=== PATIENT | male | born 1950 | race Caucasian/White ===

== ENCOUNTER 2019-03-24 11:23 | Inpatient (IN) | payer MEDICARE, OTHER ==
[2019-03-24] MEDS ORDERED: Acetaminophen 500 MG Tab PO ONE (12:00)
[2019-03-24] MEDS ORDERED: Gabapentin 400 MG Cap PO ONE (12:00)
[2019-03-24] MEDS ORDERED: Dextrose 5%-Lactated Ringers 1,000 ML IV SCH ×2 (13:00→17:30)
[2019-03-24] MEDS ORDERED: fentaNYL 250 MCG/5 ML SDV ONE (13:46)
[2019-03-24] MEDS ORDERED: Rocuronium 50 MG/5 ML Vial ONE (13:46)
[2019-03-24] MEDS ORDERED: Glycopyrrolate 0.2 MG/ML 5 ML MDV ONE (13:46)
[2019-03-24] MEDS ORDERED: Succinylcholine 200 MG/10 ML MDV ONE (13:46)
[2019-03-24] MEDS ORDERED: Propofol 200 MG/20 ML SDV ONE (13:46)
[2019-03-24] MEDS ORDERED: Ondansetron 4 MG/2 ML SDV ONE (13:46)
[2019-03-24] MEDS ORDERED: Dexamethasone 4 MG/ML SDV ONE (13:46)
[2019-03-24] MEDS ORDERED: Neostigmine Methylsulfate 1 MG/ML 5 ML Syringe ONE (13:46)
[2019-03-24] MEDS ORDERED: Albuterol/Ipratropium 3.0-0.5 MG/3 ML Neb Soln NEB ONE (14:00)
[2019-03-24] MEDS ORDERED: cefOXitin 2 GM in Sodium Chloride 0.9% 50 ML IV ONE (14:00)
[2019-03-24] MEDS ORDERED: Naloxone 0.4 MG/ML SDV IVPUSH PRN (14:00)
[2019-03-24] MEDS ORDERED: Meropenem 500 MG SDV ONE (14:32)
[2019-03-24] MEDS ORDERED: fentaNYL 100 MCG/2 ML SDV ONE (14:44)
[2019-03-24] MEDS ORDERED: Sodium Chloride 0.9% 10 ML ONE (14:44)
[2019-03-24] MEDS ORDERED: Lactated Ringers 1,000 ML ONE (15:21)
[2019-03-24] MEDS ORDERED: Ondansetron 4 MG/2 ML SDV IVPUSH PRN (17:28)
[2019-03-24] MEDS ORDERED: Albuterol/Ipratropium 3.0-0.5 MG/3 ML Neb Soln INH PRN (17:28)
[2019-03-24] MEDS ORDERED: hydrOXYzine HCl 100 MG/2 ML SDV IM PRN (17:28)
[2019-03-24] MEDS ORDERED: Nitroglycerin 0.4 MG Tab.SL SL PRN (17:30)
[2019-03-24] MEDS ORDERED: diphenhydrAMINE 50 MG/ML SDV IVPUSH PRN (17:40)
[2019-03-24] MEDS ORDERED: Naloxone 0.4 MG/ML SDV IV PRN (17:40)
[2019-03-24] MEDS: fentaNYL 2,500 MCG in Sodium Chloride 0.9% 200 ML EPIDUR SCH (18:33)
[2019-03-24] MEDS: cefOXitin 2 GM in Sodium Chloride 0.9% 50 ML IV SCH (20:35)
[2019-03-24] MEDS: Albuterol/Ipratropium 3.0-0.5 MG/3 ML Neb Soln INH SCH (21:08)
[2019-03-24] MEDS: Pantoprazole 40 MG Vial IVPUSH SCH (21:13)
[2019-03-24] MEDS: Tamsulosin 0.4 MG Cap.ER PO SCH (21:15)
[2019-03-24] MEDS: Gabapentin 400 MG Cap PO SCH (21:15)
[2019-03-25] MEDS: cefOXitin 2 GM in Sodium Chloride 0.9% 50 ML IV SCH ×2 (03:19→08:28)
[2019-03-25] MEDS: Gabapentin 400 MG Cap PO SCH ×4 (05:58→21:46)
[2019-03-25] MEDS: Albuterol/Ipratropium 3.0-0.5 MG/3 ML Neb Soln INH SCH ×4 (07:44→20:53)
--- NOTE | 2019-03-25 08:02 | CRLCR ---
HISTORY: Pleural effusion follow-up. TECHNIQUE: Two views of the chest. COMPARISON: 03/03/2019. FINDINGS: Decrease in size of small left pleural effusion with a small amount of residual pleural fluid present. There remains residual atelectasis or infiltrate at the right lung base. There is a curvilinear opacity at the right lung base with gas on either side. Considerations include dilated abdominal bowel loop, free air under the hemidiaphragm or curvilinear atelectasis. Has the patient undergone recent abdominal surgery or does the patient have abdominal symptoms? If so, consider abdominal radiographs or CT for further characterization. There is no pneumothorax. Patient is status post sternotomy. Cardiac size is within normal limits. Prior cervical fusion. IMPRESSION: 1. Decreased left pleural effusion with a small amount of residual left pleural fluid and left basilar atelectasis or infiltrate. 2. Curvilinear opacity at the right lower chest position with considerations including dilated gas-filled abdominal viscus, free air under the hemidiaphragm or possibly unusual appearance of curvilinear atelectasis. Does the patient have abdominal symptoms or has the patient undergone recent abdominal surgery? Abdominal radiographs or CT could be considered for further evaluation if clinically indicated. Dictated by Pan Pan MD @ 03/25/2019 7:59:59 AM Dictated by: Pan Pan MD @ 03/25/2019 08:00:36 (Electronically Signed)
[2019-03-25] MEDS: atorvaSTATin 20 MG Tab PO SCH (08:31)
[2019-03-25] MEDS: Aspirin 81 MG Tab.EC PO SCH (08:31)
[2019-03-25] MEDS: Lisinopril 5 MG Tab PO SCH (08:32)
[2019-03-25] MEDS: Bisacodyl 5 MG Tab PO SCH ×2 (09:27→20:48)
[2019-03-25] MEDS: traMADol 50 MG Tab PO SCH ×3 (09:27→21:47)
[2019-03-25] MEDS: Acetaminophen 500 MG Tab PO SCH ×3 (09:27→21:46)
--- NOTE | 2019-03-25 11:19 | PN ---
DATE OF SERVICE: 03/25/2019 SUBJECTIVE: Logan is postoperative day #1. He states his pain is controlled. He has remained n.p.o. Vital signs have been stable. Oral intake was 390, which includes ice chips, Anna output was 1500, JESUS drain put out 390 mL of a light pink drainage. REVIEW OF SYSTEMS: Remainder of review of systems negative for any pertinent positives and negatives. OBJECTIVE: GENERAL: Logan Campbell is a pleasant 68-year-old male. Alert and orientated. VITAL SIGNS: TPR 95.8, 65, 15. Blood pressure 105/60. HEENT: Negative. NECK: Supple. HEART: Regular rate and rhythm. LUNGS: Clear. ABDOMEN: Dressings dry and intact. Abdominal binder is on. EXTREMITIES: Without peripheral edema. JESUS drain has put out a light pink drainage. ASSESSMENT: Exploratory laparotomy with: 1. Right colectomy. 2. Excision of peritoneal nodules on proximal jejunojejunostomy (3 mm) and placement of Interceed mesh for thickened appendix with history of metastatic adenocarcinoma, left pleural fluid with immunostain suggestive of GI tract primary site. Date of surgery 03/24/2019. PLAN: 1. Schedule, have consent signed for delayed primary closure, Thursday03/26/2019. IV and local sedation with TAP block, Diego Stahl MD. 2. NPO after midnight. 3. Decrease IV to 80 mL per hour. 4. Dulcolax 10 mg p.o. b.i.d. 5. Senna Plus 2 tablets by mouth b.i.d. 6. Ibuprofen 600 mg q.6 hours scheduled by mouth orally. 7. Tylenol 1000 mg q.6 hours scheduled p.o. 8. Tramadol 50 mg q.6 hours scheduled. 9. Regular diet. 10.Ensure protein drinks 3 times a day. 11.Chest x-ray PA and lateral now to evaluate if there is any pleural effusion. 12.We will evaluate p.r.n. or in a.m. Melinda Sears PA-C /[id number]
[2019-03-25] MEDS: Ibuprofen 600 MG Tab PO SCH ×2 (12:47→19:19)
--- NOTE | 2019-03-25 13:16 | PCM.CONS ---
H&P History of Present Illness - General Date of Service: 03/25/19 Admit Problem/Dx: Admission Diagnosis/Problem Admission Diagnosis/Problem Colectomy Source of Information: Patient, Provider History Limitations: Reports: No Limitations - History of Present Illness Initial Comments - Free Text/Narative: Logan was admitted yesterday for surgical intervention with a thickened appendix and metastatic adenocarcinoma. He had an uncomplicated right colectomy. I was asked to see him today by Dr. 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 He recovered without any major adverse events. He has had surgeries since then without any difficulties. He has never been reexposed to heparin. He feels well at this time. No fevers. Abdominal pain is rated at 0 out of 10. He is a little bit sleepy and falls asleep during our conversation several times. He does not feel short of breath. Abdomen Pain Score (Numeric/FACES): 0 - Related Data Allergies/Adverse Reactions: Allergies Allergy/AdvReac Type Severity Reaction Status Date / Time heparin Allergy Tachycardia Verified 03/24/19 11:49 Home Medications: Home Meds Aspirin 81 mg PO DAILY 05/26/18 [History] Gabapentin [Neurontin] 300 mg PO QID 05/26/18 [History] Lisinopril 5 mg PO DAILY 05/26/18 [History] atorvaSTATin [Lipitor] 80 mg PO BEDTIME 05/26/18 [History] Albuterol Sulfate [Proair Hfa] 1 - 2 puff IH Q4H PRN 03/03/19 [History] Nitroglycerin [Nitrolingual] 2 spray TL ASDIRECTED PRN 03/03/19 [History] Past Medical History HEENT History: Reports: Hard of Hearing, Impaired Vision Cardiovascular History: Reports: Arrhythmia, High Cholesterol, Hypertension, Stents Respiratory History: Reports: COPD Genitourinary History: Reports: BPH Musculoskeletal History: Reports: Fracture, Osteoarthritis Neurological History: Reports: Neuropathy, Peripheral Oncologic (Cancer) History: Reports: Other (See Below) Other Oncologic History: appendix - Infectious Disease History Infectious Disease History: Reports: Chicken Pox, Measles - Past Surgical History HEENT Surgical History: Reports: None Cardiovascular Surgical History: Reports: Coronary Artery Bypass, Coronary Artery Stent Respiratory Surgical History: Reports: None Male Surgical History: Reports: None Neurological Surgical History: Reports: C-Spine Musculoskeletal Surgical History: Reports: Other (See Below) Other Musculoskeletal Surgeries/Procedures:: spinal surgery Social & Family History - Family History Respiratory: Denies: PE - Tobacco Use Smoking Status *Q: Current Every Day Smoker Years of Tobacco use: 50 Packs/Tins Daily: 1 Second Hand Smoke Exposure: No - Caffeine Use Caffeine Use: Reports: Coffee - Alcohol Use Days Per Week of Alcohol Use: 0 - Recreational Drug Use Recreational Drug Use: No H&P Review of Systems - Review of Systems: Review Of Systems: See Below Free Text/Narrative: A complete 12 point review of systems was obtained. Pertinent positives and negatives are noted in the history of present illness. All other systems were reviewed and were negative except as noted. Exam - Exam Exam: See Below - Vital Signs Vital Signs: Last Vital Signs Temp 35.1 C L 03/25/19 11:10 Pulse 75 03/25/19 11:10 Resp 15 03/25/19 11:10 BP 89/53 L 03/25/19 11:10 Pulse Ox 100 03/25/19 12:45 Weight: 73.482 kg - Exam Quality Assessment: Supplemental Oxygen General: Alert, Oriented, Cooperative. No: Mild Distress HEENT: No: Mucosa Moist & Newton[place] (dry), Scleral Icterus Neck: Supple, Trachea Midline Lungs: Normal Respiratory Effort. No: Wheezing Cardiovascular: Regular Rate, Regular Rhythm GI/Abdominal Exam: Soft, No Distention Extremities: No Pedal Edema. No: Increased Warmth Skin: Warm, Dry Neuro Extensive - Mental Status: Alert, Nl Response to Commands Neuro Extensive - Motor, Sensory, Reflexes: No: Abnormal Motor, Tremor Psychiatric: Alert, Normal Affect - Patient Data Lab Results Last 24 hrs: Laboratory Results - last 24 hr 03/24/19 Range/Units 12:00 Carcinoembryonic Ag 160.9 H (0.0-4.7) ng/mL Result Diagrams: 03/24/19 11:44 03/24/19 11:44 Imaging Impressions Last 24 hrs: CXR - images personally reviewed - small left pleural effusion, lungs otherwise clear with no mass Consult PN Assessment/Plan POD#: 1 Procedures: Procedures ASPIRATE PLEURA W/ IMAGING (03/04/19) ASSAY OF AMYLASE (03/04/19) ASSAY OF CK (CPK) (03/03/19) ASSAY PH BODY FLUID NOS (03/04/19) BODY FLUID CELL COUNT (03/04/19) C-REACTIVE PROTEIN (05/26/18) COMPLETE CBC W/AUTO DIFF WBC (05/26/18) COMPREHEN METABOLIC PANEL (05/26/18) CT ABD & PELV W/CONTRAST (03/21/19) CT ABD & PELVIS W/O CONTRAST (05/26/18) CT THORAX W/O DYE (03/04/19) CULTURE OTHR SPECIMN AEROBIC (03/04/19) EMERGENCY DEPT VISIT (05/26/18) GLUCOSE OTHER FLUID (03/04/19) HYDRATE IV INFUSION ADD-ON (05/26/18) HYDRATION IV INFUSION INIT (05/26/18) LACTATE (LD) (LDH) ENZYME (03/04/19) MYCOBACTERIA CULTURE (03/04/19) ROUTINE VENIPUNCTURE (05/26/18) SMEAR FLUORESCENT/ACID STAI (03/04/19) SMEAR GRAM STAIN (03/04/19) SPECIMEN INFECT AGNT CONCNTJ (03/04/19) URINALYSIS AUTO W/SCOPE (05/26/18) US URINE CAPACITY MEASURE (05/26/18) Problem List Initiated/Reviewed/Updated: Yes Plan: ASSESSMENT AND RECOMMENDATIONS - 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 Clinically stable at this time with no evidence for bleeding. Any of the DOAC's would be acceptable at DVT prophylaxis dosing versus fondaparinux ( Arixtra). With his kidney disease and CrCl <50 the safest option probably would be apixaban (Eliquis). -Recommend DVT prophylaxis with apixaban (Eliquis) 2.5 mg BID when safe in the postoperative period Thickened appendix with metastatic adenocarcinoma - day one postop status post right colectomy and nodule removal. Doing well postoperatively. Pain well- controlled. -Postoperative cares per the surgical team London Roa M.D. Requesting Provider: Dr Stahl Date Consult Requested: 03/25/19 Reason for Consult: Hx of HIT Patient History Reviewed: Yes Admission H&P Reviewed: Yes Notified Requestor: No Time Spent (in minutes): 40
[2019-03-25] MEDS: fentaNYL 2,500 MCG in Sodium Chloride 0.9% 200 ML EPIDUR SCH (14:49)
[2019-03-25] MEDS: Dextrose 5%-Lactated Ringers 1,000 ML IV SCH (16:29)
[2019-03-25] MEDS: Tamsulosin 0.4 MG Cap.ER PO SCH (20:48)
[2019-03-25] MEDS: Pantoprazole 40 MG Vial IVPUSH SCH (20:48)
[2019-03-26] MEDS: Ibuprofen 600 MG Tab PO SCH ×4 (01:30→19:13)
[2019-03-26] MEDS: Acetaminophen 500 MG Tab PO SCH ×4 (03:54→21:26)
[2019-03-26] MEDS: traMADol 50 MG Tab PO SCH ×4 (03:54→21:26)
[2019-03-26] MEDS: Dextrose 5%-Lactated Ringers 1,000 ML IV SCH ×2 (04:00→12:47)
[2019-03-26] MEDS ORDERED: Lactated Ringers 500 ML IV SCH (05:15)
[2019-03-26] MEDS: Gabapentin 400 MG Cap PO SCH ×4 (05:58→21:26)
[2019-03-26] MEDS ORDERED: Propofol 200 MG/20 ML SDV ONE ×2 (07:23→07:58)
[2019-03-26] MEDS: Bupivacaine 0.5% 50 ML MDV ONE ×2 (07:25→08:07)
[2019-03-26] MEDS: Lidocaine 1% with EPINEPHrine 1:100,000 50 ML MDV ONE ×2 (07:25→08:07)
[2019-03-26] MEDS: Meropenem 500 MG SDV ONE ×2 (07:26→08:13)
[2019-03-26] MEDS ORDERED: Ropivacaine 36 ML, dexAMETHasone 8 MG, EPINEPHrine 0.4 MG, Sodium Chloride 0.9% 41.6 ML NERVRT SCH ×4 (07:45)
[2019-03-26] MEDS: Albuterol/Ipratropium 3.0-0.5 MG/3 ML Neb Soln INH SCH ×4 (07:51→21:31)
[2019-03-26] MEDS: Lisinopril 5 MG Tab PO SCH (09:30)
[2019-03-26] MEDS ORDERED: HYDROmorphone 1 MG/ML Syringe IV PRN (09:44)
[2019-03-26] MEDS ORDERED: Furosemide 20 MG/2 ML VIAL IV ONE (10:30)
[2019-03-26] MEDS: Bisacodyl 5 MG Tab PO SCH ×2 (10:46→21:26)
[2019-03-26] MEDS: atorvaSTATin 20 MG Tab PO SCH (10:46)
[2019-03-26] MEDS: Aspirin 81 MG Tab.EC PO SCH (10:47)
[2019-03-26] MEDS ORDERED: Lactated Ringers 500 ML IV ONE (18:30)
[2019-03-26] MEDS: Pantoprazole 40 MG Vial IVPUSH SCH (21:26)
[2019-03-26] MEDS: Tamsulosin 0.4 MG Cap.ER PO SCH (21:26)
[2019-03-27] MEDS: Ibuprofen 600 MG Tab PO SCH ×4 (01:15→19:10)
[2019-03-27] MEDS: Dextrose 5%-Lactated Ringers 1,000 ML IV SCH ×2 (02:02→19:08)
[2019-03-27] MEDS: traMADol 50 MG Tab PO SCH ×3 (03:19→15:21)
[2019-03-27] MEDS: Acetaminophen 500 MG Tab PO SCH ×3 (03:19→15:20)
[2019-03-27] MEDS: Gabapentin 400 MG Cap PO SCH ×3 (05:50→15:20)
[2019-03-27] MEDS: Albuterol/Ipratropium 3.0-0.5 MG/3 ML Neb Soln INH SCH ×4 (07:07→21:43)
[2019-03-27] MEDS ORDERED: Sodium Chloride 0.9% 10 ML Syringe IV PRN (07:46)
[2019-03-27] MEDS ORDERED: Magnesium Hydroxide 400 MG/5 ML Susp 30 ML Cup PO PRN (07:46)
[2019-03-27] MEDS: Apixaban 2.5 MG Tab PO SCH ×2 (08:16→21:44)
[2019-03-27] MEDS: atorvaSTATin 20 MG Tab PO SCH (08:16)
[2019-03-27] MEDS: Bisacodyl 5 MG Tab PO SCH ×2 (08:16→21:25)
[2019-03-27] MEDS: Magnesium Sulfate/Water 2 GM in Premix Bag 1 BAG IV SCH ×3 (08:16→21:43)
[2019-03-27] MEDS: Aspirin 81 MG Tab.EC PO SCH (08:18)
[2019-03-27] MEDS: Lisinopril 5 MG Tab PO SCH (08:19)
--- NOTE | 2019-03-27 09:07 | PN ---
DATE OF SERVICE: 03/26/2019 The patient has been afebrile with stable vital signs. Urine output is little low overnight. We did give him some additional bolus. He is vaguely more short of breath than usual and he does have underlying chronic obstructive pulmonary disease and some history of cor pulmonale. Given this, I think we will give him a low-dose Lasix at this point otherwise. He underwent a delayed primary closure at this point and we will begin diet once again and continue the Tylenol, tramadol, and ibuprofen, and Dilaudid IV if necessary. Otherwise, Anna catheter will be coming out and we will maximize activity and work with pulmonary toilet and continue to work on bowel stimulation. Diego Stahl MD /[id number]
--- NOTE | 2019-03-27 12:13 | PN ---
DATE OF SERVICE: 03/27/2019 The patient has been afebrile with stable vital signs. No bowel movement as of yet, may be passing a little bit of gas. Otherwise, oral intake was 2200 mL lack of IV and continue with bowel stimulation today and JESUS drain will come out. He will probably be able to be discharged home tomorrow. Diego Stahl MD /[id number]
--- NOTE | 2019-03-27 13:04 | OR ---
DATE OF PROCEDURE: 03/26/2019 PREOPERATIVE DIAGNOSIS: Open abdominal incision. POSTOPERATIVE DIAGNOSIS: Open abdominal incision. PROCEDURE: Delayed primary closure of open abdominal incision. ANESTHESIA: IV sedation plus local. INDICATION FOR PROCEDURE: The patient is 48 hours out status post an open laparotomy bowel with a right colectomy. I think he was felt to be high risk for wound infection if primary closure was undertaken. Therefore, he is to undergo a delayed primary closure at this time. Potential risks of the procedure including bleeding and infection were reviewed with the patient, and he wishes to proceed. DETAILS OF PROCEDURE: The patient was taken to the operating room and placed in a supine position, sitting somewhat upright to minimize aspiration risk. The abdomen was then prepped and draped after the dressing had been taken down and the wound being judged to be clean. The incision was then anesthetized with 1% lidocaine mixed with Marcaine, then irrigated with meropenem-containing saline solution. The incision was extended from roughly 3 fingerbreadths above the umbilicus to just above the pubis. It was then closed with 2 layers of 3-0 and 4-0 Vicryl stitch deep and arjun for the skin. Bilateral transversus abdominis plane blocks were then placed, and eventually the patient was taken to the recovery room in satisfactory condition. Diego Stahl MD /[id number]
[2019-03-27] MEDS ORDERED: Bisacodyl 10 MG Supp RECTAL PRN (13:45)
[2019-03-27] MEDS ORDERED: Bisacodyl 10 MG Supp RECTAL ONE (14:00)
[2019-03-27] MEDS ORDERED: Pantoprazole 40 MG Tab.CR PO SCH (21:00)
[2019-03-27] MEDS ORDERED: Acetaminophen 1,000 MG in Premix Bag 1 BAG IV PRN (21:22)
[2019-03-27] MEDS: Tamsulosin 0.4 MG Cap.ER PO SCH (21:25)
[2019-03-27] MEDS: Metoclopramide 10 MG/2 ML SDV IV SCH (21:43)
[2019-03-27] MEDS ORDERED: Pantoprazole 40 MG Vial IVPUSH SCH (22:00)
[2019-03-28] MEDS: Metoclopramide 10 MG/2 ML SDV IV SCH ×4 (04:17→23:35)
[2019-03-28] MEDS: Dextrose 5%-Lactated Ringers 1,000 ML IV SCH (04:17)
[2019-03-28] MEDS: Magnesium Sulfate/Water 2 GM in Premix Bag 1 BAG IV SCH ×4 (04:17→20:29)
--- NOTE | 2019-03-28 05:13 | CRLCR ---
INDICATION: Colon resection. Ileus. TECHNIQUE: Upright and supine views of the abdomen IMPRESSION : Air-fluid levels with possible ileus pattern however suggest follow-up. Upright exam shows no free air under the hemidiaphragms. FINDINGS: Multiple air-fluid levels within the GI tract. Some possible radiodense material or contrast in the left colon. Left upper quadrant. NG tube placement to the proximal stomach. No definite free air under the diaphragms. Midline surgical arjun are present. Paucity of distal colon gas is present. In a postoperative patient ileus could be considered but follow up is suggested. Dictated by Alli Pichardo MD @ Mar 28 2019 5:12AM Signed by Dr. Alli Pichardo @ Mar 28 2019 5:12AM
[2019-03-28] MEDS: Albuterol/Ipratropium 3.0-0.5 MG/3 ML Neb Soln INH SCH ×4 (07:23→20:29)
[2019-03-28] MEDS ORDERED: Furosemide 20 MG/2 ML VIAL IVPUSH ONE (08:00)
[2019-03-28] MEDS: Apixaban 2.5 MG Tab PO SCH ×2 (08:43→20:29)
[2019-03-28] MEDS: Lisinopril 5 MG Tab PO SCH (08:43)
[2019-03-28] MEDS: Bisacodyl 10 MG Supp RECTAL SCH ×3 (08:44→23:38)
--- NOTE | 2019-03-28 09:10 | OR ---
DATE OF PROCEDURE: 03/24/2019 SURGEON: Diego Stahl MD PREOPERATIVE DIAGNOSIS: Thickened appendix with history of metastatic adenocarcinoma in left pleural fluid with immunostains suggestive of gastrointestinal tract primary site. POSTOPERATIVE DIAGNOSES: 1. Thickened appendix with history of metastatic adenocarcinoma in left pleural fluid with immunostains suggestive of gastrointestinal tract primary site. 2. Peritoneal nodule overlying the proximal jejunum. OPERATIVE PROCEDURES: Exploratory laparotomy with: 1. Right colectomy (03535). 2. Excision of peritoneal nodule on proximal jejunal peritoneal surface (79009). 3. Placement of Interceed mesh to displace pelvic and abdominal wall from underlying viscera to limit recurrent adhesion formation (79815). ANESTHESIA: General plus epidural. PARTS DELIVERY DRIVER: Melinda Sears PA-C. INDICATIONS FOR PROCEDURE: This is a 68-year-old recently presenting with some shortness of breath and was found to have a large left pleural effusion. A thoracentesis was undertaken, and it showed adenocarcinoma within the pleural fluid. The immunostains, however, were not definitive for a lung primary and were, however, somewhat suggestive of possible gastrointestinal primary site. CT scan was obtained of the abdomen and the only abnormality noted was there was a thickened appendix. This would be suggestive of either a possible appendiceal carcinoma or a cecal carcinoma at or near the appendiceal orifice. This also raised the spectrum of possible perforation of this, which would result in peritoneal carcinomatosis. Again, given this, I was contacted by the patient's Medical Oncology provider, Ambreen Osborne PA-C, who recommended a rapid surgical intervention. We opted to proceed with a right colectomy so that, in the event that this was a malignancy, adequate surgical procedure as well as staging would have been accomplished at a single operative setting. The patient and family are aware that there is a possibility this may end up being a non- malignant finding in the appendix. Otherwise, potential risks including bleeding, infection, leaks from various GI tract closures, possible additional local tumor recurrence, as well as possibility of cardiopulmonary, septic, or hemorrhagic complications leading to were discussed, and the patient wishes to proceed. DETAILS OF PROCEDURE: The patient was taken to the operating room and placed in a supine position. After an epidural catheter had been placed, general endotracheal anesthesia was induced, a Anna catheter was inserted, and the abdomen was prepped and draped. Prior to incision, the epidural catheter infusion was initiated. A midline incision which extended from roughly 3 fingerbreadths above the umbilicus to just above the pubis was made and carried down through the full thickness of the abdominal wall. Upon entering the peritoneal cavity, initially saline was injected for peritoneal washings. A thorough exploration was then undertaken. The patient was noted to have a thickened appendix. This definitely did not appear to be a normal appendix. There was no hard mass associated with it, but more of a thickening in the proximal half of the appendix. There was quite a bit in the way of nodes in the ileocolic chain. None of these were significantly large, but they were somewhat firm, but they certainly could be inflammatory in nature other than malignant. Otherwise, a thorough examination was undertaken. The area along the splenic area and tail of pancreas were then inspected. The entire pancreas was then palpated. There were no abnormalities noted. The liver was visually identified and by palpation, examined, and no abnormalities were noted there. Underlying the small bowel, there was a 3 mm whitish nodule located on the peritoneum of the proximal jejunum. This was excised and sent for pathologic exam. This, despite the finding, probably will end up being benign. Otherwise, the remainder of the small bowel was unremarkable. The rectum was unremarkable, as was the urinary bladder. The sigmoid colon had quite extensive diverticulosis, but careful palpation revealed no obvious masses, and the remainder of the more proximal colon was otherwise unremarkable. There did not appear to be any periaortic or iliac lymphadenopathy. No pleural lymphadenopathy. Gallbladder was otherwise unremarkable as well. Certainly, there was no peritoneal carcinomatosis per se, and no significant primary peritoneal fluid prior to the initiation of the washings. At this point, the decision was made to proceed as previously planned with the right colectomy. At this point, the peritoneal reflection of the distal small bowel, cecum, and then ascending colon were divided. This allowed mobilization of the distal small bowel, cecum, and the ascending colon medially. This was elevated above the right ureter and away from the duodenum. The distal small bowel was then divided with a ALEXA stapler, roughly 10 cm proximal to the ileocecal valve, which was an area which was quite mobile, allowing an easy subsequent anastomosis. The transverse colon was then divided at a point just to the right of the middle colic vessel with a GI stapler as well, and the intervening mesentery was then divided with ALEXA mesenteric staple. The ileocolic vessels were divided more or less at their leaving the origin of the superior mesenteric artery to provide a satisfactory lymph node resection. Upon removal of the specimen, off the field, it was subsequently opened. The mucosa of the appendix was noted to be somewhat thickened, but not obviously malignant. Final pathology report is obviously pending. At this point, GI tract continuity was re-established with a [id number] ileocolic anastomosis. This was done with 2 internal firings of an Endo-ALEXA 60 mm stapler. Common opening was closed transversely with ALEXA arjun as well, the angles anastomosed, and the mesenteric defect was then approximated with some 3-0 Vicryl stitch. Fibrin sealant was then also used to reinforce the anastomosis, and some omentum was placed over the anastomosis as well. At this point, no further problems were noted. The abdomen was irrigated with meropenem-containing saline solution. A single John-Cage drain was then placed through a stab wound in the right flank, taken down across the anastomosis and along the right pericolic gutter area and from there into the pelvis. In the event the patient would need some additional abdominal surgeries, the pelvic and abdominal alvarado were then from the underlying viscera with Interceed mesh so as to limit adhesion formation. Once this was raised, the posterior peritoneum from the linea semilunaris downwards was closed with a #2 Vicryl stitch as was the anterior fascia. Skin and subcutaneous tissue were felt to be at high risk for wound infection if the primary closure was undertaken, so the wound packed open for a delayed primary closure in 48 hours. The patient was taken to the recovery room in satisfactory condition. Physician embalmer assistant, Melinda Sears, played an essential role in assisting in this case, helping to position the patient, retract structures as needed, as well as suturing and cutting sutures when indicated. Her presence improved patient safety and decreased the operative time. Diego Stahl MD /[id number]
--- NOTE | 2019-03-28 11:34 | PN ---
DATE OF SERVICE: 03/28/2019 SUBJECTIVE: Logan developed an ileus. An NG was placed and it needs to be advanced about 5 inches. He is reporting increased amount of pain and abdominal distention. Vital signs have remained stable. He has been afebrile. Pulse has been a little bit elevated at 96 to 106. REVIEW OF SYSTEMS: Remainder of review of systems negative for any pertinent positives and negatives. OBJECTIVE: GENERAL: Logan is a 68-year-old male. He is alert, oriented, color flushed. VITAL SIGNS: TPR is 97.1, 96, 18, and blood pressure 98/61. HEENT: NG in place and draining a green drainage. NECK: Supple. HEART: Regular rate and rhythm. LUNGS: Reveal decreased breath sounds bilaterally. No rales or wheezing. ABDOMEN: Dressing dry and intact. Abdominal binder is on. EXTREMITIES: Without peripheral edema. ASSESSMENT: Exploratory laparotomy; right colectomy; excision of peritoneal nodule on the jejunojejunostomy junction, 3 mm. PLAN: 1. Lasix 10 mg IV now. 2. Hold oral medications. 3. Give lisinopril and Eliquis orally with a sip of water. 4. Clamp NG for 1 hour. 5. Dulcolax suppositories every 8 hours until BM. 6. Check abdominal x-ray, flat and upright, for 1 week. It was ordered to be done at 0400. 7. Good pulmonary toilet. 8. We will evaluate p.r.n. or in a.m. Melinda Sears PA-C /[id number]
[2019-03-28] MEDS ORDERED: Phenol/Sodium Phenolate Spray 180 ML Bottle MUCMEM PRN (20:19)
[2019-03-28] MEDS: Pantoprazole 40 MG Vial IVPUSH SCH (20:30)
[2019-03-29] MEDS: Dextrose 5%-Lactated Ringers 1,000 ML IV SCH ×3 (00:56→20:19)
[2019-03-29] MEDS: Metoclopramide 10 MG/2 ML SDV IV SCH ×4 (04:04→20:59)
[2019-03-29] MEDS: Magnesium Sulfate/Water 2 GM in Premix Bag 1 BAG IV SCH (04:07)
--- NOTE | 2019-03-29 06:10 | CRLCR ---
Indication: Ileus Technique: Four views of the abdomen. Comparison: 03/28/19 Findings/Impression: : A nasogastric tube with the tip in the stomach. Left upper quadrant surgical clips, abdominal skin arjun and sternotomy sutures again seen. Gas-filled upper abdominal small bowel segments with air-fluid levels, decreased compared to the prior. Gas-filled colonic segments. Stable osseous structures. Dictated by Ole Abarca MD @ 03/29/2019 6:08:31 AM Dictated by: Ole Abarca MD @ 03/29/2019 06:08:37 (Electronically Signed)
[2019-03-29] MEDS: Albuterol/Ipratropium 3.0-0.5 MG/3 ML Neb Soln INH SCH ×4 (07:12→20:58)
[2019-03-29] MEDS ORDERED: Bisacodyl 10 MG Supp RECTAL PRN (07:48)
[2019-03-29] MEDS: Apixaban 2.5 MG Tab PO SCH ×2 (08:59→20:59)
[2019-03-29] MEDS: Lisinopril 5 MG Tab PO SCH (09:00)
--- NOTE | 2019-03-29 11:28 | PN ---
DATE OF SERVICE: 03/29/2019 SUBJECTIVE: Logan has had 2 bowel movements. His NG did put out 2300 of a thick brown drainage. Vital signs have been stable. His pain is controlled. He has no other concerns or questions with the exception he would like NG tube out. PHYSICAL EXAMINATION: GENERAL: Logan Campbell is a 68-year-old male. He is alert and oriented. VITAL SIGNS: TPR 96.1, 83, 18, blood pressure 122/64. HEENT: Negative. NECK: Supple. HEART: Regular rate and rhythm. LUNGS: Clear. ABDOMEN: Dressings dry and intact. Abdominal binder is on. EXTREMITIES: Without peripheral edema. ASSESSMENT: 1. Exploratory laparotomy with right colectomy, excision of peritoneal nodule, proximal jejunal peritoneal surface, 3. Placement of Interceed mesh to displace pelvic and abdominal wall from underlying viscera to limit recurrent adhesion formation for thickened appendix with history of metastatic adenocarcinoma in the left pleural fluid with immunostains suggestive of gastrointestinal tract primary site and peritoneal nodule overlying the proximal jejunum. Date of surgery 03/24/2019. Surgeon, Diego Stahl MD. 2. Delayed primary closure of open abdominal incision 03/26/2019. Surgeon, Diego Stahl MD. PLAN: 1. Sips of clear liquid. 2. Check CBC, CMP, phosphorus, and magnesium in a.m. and check abdominal flat and upright x-ray in a.m. 3. Good pulmonary toilet. 4. We will evaluate p.r.n. or in a.m. Melinda Sears PA-C /[id number]
[2019-03-29] MEDS: Pantoprazole 40 MG Vial IVPUSH SCH (20:59)
[2019-03-30] MEDS: Metoclopramide 10 MG/2 ML SDV IV SCH (03:03)
--- NOTE | 2019-03-30 06:07 | CRLCR ---
INDICATION: Postoperative ileus. TECHNIQUE: Supine and upright views of the abdomen and pelvis. COMPARISON: March 29, 2019. FINDINGS: Enteric tube with its tip underneath the left hemidiaphragm within the proximal mid stomach. Few scattered air-fluid levels are identified within portions of the colon and less so the small-bowel. There is a paucity of small bowel gas. Postsurgical change from sternotomy. Surgical clips left upper quadrant. Anastomotic suture lines within the right mid abdomen and right lower quadrant. Surgical staple line midline anterior lower abdominal wall. Scattered degenerative and hypertrophic change of the included spine. IMPRESSION: There is a paucity of small bowel gas. Fluid-filled dilated small bowel loops cannot be excluded. Scattered air-fluid levels are identified within the colon and a few small bowel loops. The appearance is somewhat improved compared to March 29, 2019. Continued radiographic follow up is recommended. Dictated by Jed Waters MD @ Mar 30 2019 6:03AM Signed by Dr. Jed Waters @ Mar 30 2019 6:06AM
[2019-03-30] MEDS: Dextrose 5%-Lactated Ringers 1,000 ML IV SCH (06:20)
[2019-03-30] MEDS: Albuterol/Ipratropium 3.0-0.5 MG/3 ML Neb Soln INH SCH ×3 (07:16→14:26)
[2019-03-30] MEDS ORDERED: HYDROmorphone 2 MG Tab PO PRN (08:02)
[2019-03-30] MEDS ORDERED: Ondansetron 4 MG Tab.DIS PO PRN (08:03)
[2019-03-30] MEDS: Apixaban 2.5 MG Tab PO SCH (08:22)
[2019-03-30] MEDS: Lisinopril 5 MG Tab PO SCH (08:22)
[2019-03-30] MEDS: Metoclopramide 10 MG Tab PO SCH ×2 (10:02→15:53)
--- NOTE | 2019-03-30 18:43 | DISCH ---
ADMISSION DIAGNOSES: 1. 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 2. 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 3. History of 4-vessel coronary artery bypass. 4. Idiopathic peripheral neuropathy. 5. History of pulmonary embolism. 6. Coronary artery disease. 7. Panlobular emphysema. 8. Chronic obstructive pulmonary disease. DISCHARGE DIAGNOSES: 1. 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 Date of surgery, 03/24/2019. Surgeon, Diego Stahl MD. 2. Delayed primary closure of open abdominal incision, 03/26/2019. Surgeon, Diego Stahl. HISTORY: Logan Campbell is a 68-year-old male who recently presented with shortness of breath and was found to have a left pleural effusion. A thoracentesis was taken and it showed adenocarcinoma with the pleural fluid. The immunostains, however, were not definitive for lung primary and were suggestive of possible gastrointestinal primary site. A CT was obtained and the only abnormality noted was a thickened appendix. After preoperative evaluation and discussion of possible risks and possible complications, he wished to proceed with surgical procedure. HOSPITAL COURSE: Surgery was on 03/24/2019. There were no operative complications. He had delayed primary closure on 03/26/2019 and no operative complications. On 03/27/2019, he was passing flatus and was given some bowel stimulation but developed a postop ileus. An NG was replaced and his diet was backed off to ice chips. On 03/28/2019, he was given suppositories every 8 hours. He started having bowel movements on 03/29/2019. The NG continued to pump out quite a bit of drainage and his lab values were rechecked. On 03/30/2019, NG was discontinued. He was advised to stay another 24 hours but requested to be discharged to home to see his children and he will be discharged later today if he remains stable. If he started on a clear liquid diet for breakfast, then advance to full liquid diet at noon. He is having bowel movements. Afebrile. Vital signs have been stable. PHYSICAL EXAMINATION: GENERAL: Logan Campbell is a 68-year-old male. VITAL SIGNS: Height is 6 feet, weight is 162 pounds. TPR is 96.4, 64, 16. Blood pressure 98/48. HEENT: Negative. NECK: Supple. HEART: Regular rate and rhythm. LUNGS: Revealed decreased breath sounds in the left, otherwise clear. ABDOMEN: Aquacel dressing is on. This will be removed prior to discharge. Abdominal binder is on. EXTREMITIES: Without peripheral edema. DISPOSITION: Discharge to home. CONDITION: Stable and improving. FOLLOWUP APPOINTMENT: With Diego Stahl MD on 04/06/2019 at 11 a.m. HOME MEDICATIONS: 1. Dilaudid 2 mg q.4 hours p.r.n. pain, #42. 2. Zofran ODT 4 mg every 4 hours p.r.n. nausea, #30. 3. Reglan 10 mg q.6 hours for 1 week. 4. He is to resume his home medication of ProAir inhaler 1 to 2 puffs every 4 hours p.r.n. shortness of breath. 5. Aspirin 81 mg daily. 6. Neurontin 300 mg oral 4 times a day. 7. Lisinopril 5 mg oral daily. 8. Nitroglycerin 2 sprays translingual and directed p.r.n. chest pain. 9. Lipitor 80 mg oral at bedtime. DIET: Full liquid diet for 3 days and slowly advance to soft diet. Drink 8 to 10 glasses of water a day. ACTIVITY: No lifting greater than 10 pounds for 6 weeks. Other activity, walk at least 6 times daily. Driving, do not drive on for 1 week and while on pain medication. Shower/bathing, may shower. Wound incision care, keep operative site clean and dry. Wear abdominal binder for 4 weeks and then as tolerated. Notify provider if any fever, increased pain, nausea, vomiting. SPECIAL INSTRUCTIONS: 1. Use incentive spirometer 10 times every hour while awake for 1 week. 2. Call Surgery, Department of [facility] with any questions or concerns at or [facility] at [phone].
== END 2019-03-30 15:45 | disposition home or self-care (01) | DRG 330 ==
LOC: JP.SDSSCHI 11:23 → JP.SDS 11:23 → EDSTATUS 13:30 → JP.MS 16:35 → JP.SDSSCHI 17:15 → JP.MS 17:15
PROVIDERS: ADMIT Surgery; ATTEND Surgery
PROC: 0DTF0ZZ Resection of Right Large Intestine, Open Approach (ICD-10-PCS; principal; 2019-03-24)
PROC: 0DBW0ZX Excision of Peritoneum, Open Approach, Diagnostic (ICD-10-PCS; 2019-03-24)
PROC: 07BC0ZX Excision of Pelvis Lymphatic, Open Approach, Diagnostic (ICD-10-PCS; 2019-03-24)
PROC: 3E0M05Z Introduction of Adhesion Barrier into Peritoneal Cavity, Open Approach (ICD-10-PCS; 2019-03-24)
PROC: 3E1M38X Irrigation of Peritoneal Cavity using Irrigating Substance, Percutaneous Approach, Diagnostic (ICD-10-PCS; 2019-03-24)
PROC: 0WQF0ZZ Repair Abdominal Wall, Open Approach (ICD-10-PCS; 2019-03-26)
DX: K38.8 Other specified diseases of appendix (principal); C79.89 Secondary malignant neoplasm of other specified sites; K56.7 Ileus, unspecified; K66.8 Other specified disorders of peritoneum; Z48.1 Encounter for planned postprocedural wound closure; I10 Essential (primary) hypertension; I25.118 Atherosclerotic heart disease of native coronary artery with other forms of angina pectoris; F17.210 Nicotine dependence, cigarettes, uncomplicated; Z95.1 Presence of aortocoronary bypass graft; Z86.711 Personal history of pulmonary embolism; Z86.718 Personal history of other venous thrombosis and embolism; Z95.5 Presence of coronary angioplasty implant and graft; I27.81 Cor pulmonale (chronic); J43.1 Panlobular emphysema; H91.90 Unspecified hearing loss, unspecified ear; G60.9 Hereditary and idiopathic neuropathy, unspecified; K38.9 Disease of appendix, unspecified; D75.9 Disease of blood and blood-forming organs, unspecified; E78.00 Pure hypercholesterolemia, unspecified; Z79.82 Long term (current) use of aspirin; Z88.8 Allergy status to other drugs, medicaments and biological substances; N40.0 Benign prostatic hyperplasia without lower urinary tract symptoms; G60.8 Other hereditary and idiopathic neuropathies
CPT/HCPCS: 36415; 71046; 74019; 80053; 82378; 83735; 83880; 84100; 85027; 88305; 88309; 94640; 94762; A9270-GY; C9113; J0171; J0330; J0694; J1100; J1200; J1940; J2185; J2405; J2704; J2710; J2765; J2795; J3010; J3475; J3490; J7042; J7050; J7120; J7620-GY

== ENCOUNTER 2020-07-02 08:59 | Emergency (ER) | payer MEDICARE, OTHER ==
--- NOTE | 2020-07-02 09:39 | EDM.PDOC ---
ED HPI GENERAL MEDICAL PROBLEM - General Chief Complaint: Respiratory Problem Stated Complaint: CANCER SHORTNESS OF BREATH Time Seen by Provider: 07/02/20 09:30 Source of Information: Reports: Patient History Limitations: Reports: No Limitations - History of Present Illness INITIAL COMMENTS - FREE TEXT/NARRATIVE: 70-year-old with known pulmonary carcinoma, undergoing chemotherapy treatment presents with 3 days of worsening shortness of breath especially with activity. Also developed the right upper quadrant abdominal discomfort. No fevers or chills, no dark stools, no hematemesis or nosebleeds. He has a history of a pleural effusion. He also has a long history of irregular heart and PVCs. Denies any chest pain other than the extreme right anterior lower chest cont inuous with the right upper quadrant. No recent trauma or falls, no cold symptoms. Pain is worse with certain range of motion but does not worsen with breathing. It is not a consistent pain, in fact he has no pain at this time and when it occurs it is sharp. Onset: Gradual Duration: Day(s): (3 days) Location: Reports: Other (Some discomfort in the right upper quadrant) Quality: Reports: Ache, Sharp Improves with: Reports: None Worsens with: Reports: Movement Associated Symptoms: Reports: Shortness of Breath (Increase shortness of breath especially with activity) Left Lower Abdomen Pain Score (Numeric/FACES): 7 - Related Data Allergies Allergy/AdvReac Type Severity Reaction Status Date / Time heparin Allergy Tachycardia Verified 07/02/20 09:30 Home Meds: Home Meds Aspirin 81 mg PO DAILY 05/26/18 [History] Gabapentin [Neurontin] 400 mg PO QID 05/26/18 [History] atorvaSTATin [Lipitor] 80 mg PO BEDTIME 05/26/18 [History] Albuterol Sulfate [Proair Hfa] 1 - 2 puff IH Q4H PRN 03/03/19 [History] Nitroglycerin [Nitrolingual] 2 spray TL ASDIRECTED PRN 03/03/19 [History] Past Medical History HEENT History: Reports: Hard of Hearing, Impaired Vision Cardiovascular History: Reports: Arrhythmia, High Cholesterol, Hypertension, Stents Respiratory History: Reports: COPD Genitourinary History: Reports: BPH Musculoskeletal History: Reports: Fracture, Osteoarthritis Neurological History: Reports: Neuropathy, Peripheral Oncologic (Cancer) History: Reports: Other (See Below) Other Oncologic History: appendix - Infectious Disease History Infectious Disease History: Reports: Chicken Pox, Measles - Past Surgical History HEENT Surgical History: Reports: None Cardiovascular Surgical History: Reports: Coronary Artery Bypass, Coronary Artery Stent Respiratory Surgical History: Reports: None Male Surgical History: Reports: None Neurological Surgical History: Reports: C-Spine Musculoskeletal Surgical History: Reports: Other (See Below) Other Musculoskeletal Surgeries/Procedures:: spinal surgery Social & Family History - Caffeine Use Caffeine Use: Reports: Coffee ED ROS GENERAL - Review of Systems Review Of Systems: See Below Constitutional: Reports: Malaise. Denies: Fever, Chills HEENT: Reports: No Symptoms Respiratory: Reports: Shortness of Breath Cardiovascular: Reports: Palpitations GI/Abdominal: Reports: Abdominal Pain. Denies: Nausea, Vomiting : Reports: No Symptoms Skin: Reports: No Symptoms Neurological: Reports: No Symptoms Psychiatric: Reports: No Symptoms ED EXAM, GENERAL - Physical Exam Exam: See Below Exam Limited By: No Limitations General Appearance: Alert, No Apparent Distress Eye Exam: Bilateral Eye: EOMI, Other (No obvious jaundice) Respiratory/Chest: No Respiratory Distress, Lungs Clear Cardiovascular: No Murmur, Irregularly Irregular GI/Abdominal: Soft, Tender (I can reproduce symptoms for quadrant however no rebound or guarding. No pain with palpation of the external in the right side, no rash over the sore area) Extremities: Normal Inspection. No: Pedal Edema, Increased Warmth Neurological: Alert, Oriented Psychiatric: Normal Affect, Normal Mood Skin Exam: Warm, Dry Course - Vital Signs Last Recorded V/S: Last Vital Signs Temp 97.0 F 07/02/20 09:28 Pulse 75 07/02/20 11:37 Resp 16 07/02/20 11:37 BP 124/72 07/02/20 11:37 Pulse Ox 98 07/02/20 11:37 - Orders/Labs/Meds Orders: Active Orders 24 hr Category Date Time Status CORONAVIRUS COVID-19, MARITZA Stat Lab 07/02/20 11:29 Received Labs: Laboratory Tests 07/02/20 07/02/20 Range/Units 09:40 09:40 WBC 8.6 (4.5-11.0) K/uL RBC 4.62 (4.30-5.90) M/uL Hgb 14.1 D (12.0-15.0) g/dL Hct 42.7 (40.0-54.0) % MCV 92 (80-98) fL MCH 31 (27-31) pg MCHC 33 (32-36) % Plt Count 268 (150-400) K/uL Neut % (Auto) 49 (36-66) % Lymph % (Auto) 26 (24-44) % [place] % (Auto) 8 H (2-6) % Eos % (Auto) 17 H (2-4) % Baso % (Auto) 1 (0-1) % Sodium 135 L (140-148) mmol/L Potassium 4.7 (3.6-5.2) mmol/L Chloride 97 L (100-108) mmol/L Carbon Dioxide 20 L (21-32) mmol/L Anion Gap 22.7 H (5.0-14.0) mmol/L BUN 26 H (7-18) mg/dL Creatinine 2.1 H (0.8-1.3) mg/dL Est Cr Clr Drug Dosing 31.62 mL/min Estimated GFR (MDRD) 31 L (>60) Glucose 86 (74-106) mg/dL Calcium 9.6 (8.5-10.1) mg/dL Total Bilirubin 0.9 D (0.2-1.0) mg/dL AST 22 (15-37) U/L ALT 19 (12-78) U/L Alkaline Phosphatase 203 H D (46-116) U/L Troponin I < 0.017 (0.000-0.056) ng/mL Total Protein 7.3 (6.4-8.2) g/dL Albumin 3.0 L (3.4-5.0) g/dL Globulin 4.3 H (2.3-3.5) g/dL Albumin/Globulin Ratio 0.7 L (1.2-2.2) Lipase 25 L (73-393) U/L Meds: Medications Discontinued Medications Generic Name Dose Route Start Last Admin Trade Name Freq PRN Reason Stop Dose Admin Methylprednisolone Sodium Succinate 125 mg 07/02/20 11:18 07/02/20 11:32 Solu-Medrol IVPUSH 07/02/20 11:19 125 mg ONETIME ONE Administration - Re-Assessments/Exams Free Text/Narrative Re-Assessment/Exam: 07/02/20 09:43 A 2 view chest x-ray was obtained, along with a CBC, CMP, troponin and lipase. He was kept on cardiac monitoring and continued to have numerous PVCs, frequently in bigeminy 07/02/20 10:08 Chest x-ray shows no significant pleural effusions, congestive heart failure or cardiomegaly. A bedside ultrasound showed no pericardial effusion or abdominal ascites, there did look like there was some right atrial enlargement. This patient does have a history of PE but his O2 saturations remained in the upper 90s. He continued to have frequent PVCs. Labs are pending. 07/02/20 11:20 Labs are all reassuring. Troponin is 0. Chest x-ray was followed by a CT of the chest which also look stable. His vitals remained stable, O2 saturation 99% and no increased respiratory effort. He will be given 125 mg of IV Solu- Medrol, and increase activity as tolerated. Continue with inhalers as needed. Return in the next 2 to 3 days if not improving satisfactorily. Departure - Departure Time of Disposition: 11:43 Disposition: Home, Self-Care 01 Clinical Impression: Shortness of breath, Pneumonitis - Discharge Information Instructions: Shortness of Breath, Adult, [id number] Referrals: Myke Mayorga MD [Primary Care Provider] - Forms: ED Department Discharge Care Plan Goals: Continue any current medications, use your inhaler as needed and increase activity as tolerated. Consider rechecking in 2 to 3 days if not improving satisfactorily, or return sooner if worsening such as fever or increased shortness of breath. We will contact you with your COVID test result in the next 2 to 3 days. Sepsis Event Note (ED) - Evaluation Sepsis Screening Result: No Definite Risk - Focused Exam Vital Signs: Vital Signs Temp Pulse Resp BP Pulse Ox 07/02/20 11:37 75 16 124/72 98 07/02/20 10:56 83 9 L 116/74 100 07/02/20 10:19 79 18 94/65 98 07/02/20 09:53 65 19 90/55 L 98 07/02/20 09:28 97.0 F 98 18 95/53 L 99 07/02/20 09:23 97.0 F 98 18 95/53 L 99 07/02/20 09:20 54 L 20 90/41 L 99 - My Orders Last 24 Hours: My Active Orders 07/02/20 11:29 CORONAVIRUS COVID-19, MARITZA Stat - Assessment/Plan Last 24 Hours: My Active Orders 07/02/20 11:29 CORONAVIRUS COVID-19, MARITZA Stat
--- NOTE | 2020-07-02 10:10 | CR ---
CHEST: 2 view CLINICAL HISTORY:Dyspnea COMPARISON:July 2019 FINDINGS: The lungs are emphysematous. Heart size and pulmonary vascularity are normal. There has been previous sternotomy. There are atherosclerotic changes in the aorta. There is a small right effusion versus chronic pleural thickening. No infiltrates are seen. IMPRESSION: Changes of COPD Small right effusion versus chronic pleural thickening
[2020-07-02] MEDS ORDERED: methylPREDNISolone Sodium Succinate 125 MG/2 ML SDV IVPUSH ONE (11:18)
--- NOTE | 2020-07-02 11:32 | CT ---
Chest wo Cont CLINICAL HISTORY: SOB, right lower chest pain, abdominal pain TECHNIQUE: Transverse scans were obtained from the thoracic inlet to the lung bases without contrast. Auto dosage reduction in intervertebral reconstruction techniques were employed COMPARISONS: 2019 FINDINGS: There is moderate diffuse emphysematous changes with scattered bulla. There is generalized interstitial prominence. This was present on prior study. There is an increase in the interstitial markings in the right upper lobe. This may represent some superimposed pneumonitis. There is diffuse bronchiectasis. There is patchy areas of pleural parenchymal scarring. There are scattered granulomata. No mediastinal mass or lymphadenopathy is identified. There is no pleural effusion. IMPRESSION: Moderate changes of COPD Interval increase in the interstitial markings in the right upper lobe is suspect for superimposed pneumonitis
== END 2020-07-02 11:40 | disposition home or self-care (01) ==
LOC: JP.ED 08:59
DX: J18.9 Pneumonia, unspecified organism (principal); R00.2 Palpitations; R10.11 Right upper quadrant pain; R10.32 Left lower quadrant pain; I10 Essential (primary) hypertension; J44.9 Chronic obstructive pulmonary disease, unspecified; M19.90 Unspecified osteoarthritis, unspecified site; Z95.1 Presence of aortocoronary bypass graft; Z79.82 Long term (current) use of aspirin; Z88.8 Allergy status to other drugs, medicaments and biological substances; Z20.828 Contact with and (suspected) exposure to other viral communicable diseases
CPT/HCPCS: 36415; 71046; 71250; 80053; 83690; 84484; 85025; 96374; 99285; J2930; U0002

== ENCOUNTER 2021-02-26 18:39 | Observation (INO) | payer MEDICARE, OTHER ==
[2021-02-26] MEDS ORDERED: Sodium Chloride 0.9% 10 ML Syringe FLUSH PRN ×2 (19:14→19:41)
[2021-02-26] MEDS ORDERED: Sodium Chloride 0.9% 500 ML IV ONE (19:16)
--- NOTE | 2021-02-26 19:55 | EDM.PDOC ---
ED HPI GENERAL MEDICAL PROBLEM - General Chief Complaint: Gastrointestinal Problem Stated Complaint: BLOOD IN STOOL Time Seen by Provider: 02/26/21 19:14 Source of Information: Reports: Patient, Family, RN History Limitations: Reports: No Limitations - History of Present Illness INITIAL COMMENTS - FREE TEXT/NARRATIVE: Patient presents to the ER tonight due to noted black tarry stools that started this am, now having reported dat blood per rectum as well as an episode of near syncope with moving from lying to upright position this afternoon. He reports 2-bloody stools. History is significant for lung nodule biopsy yesterday as outpatient (Dr Stahl & Radiology per patient family); additionally he has a pancreatic mass but they were unable to get a biopsy completed yes terday per patient family member. He is noted to be fairly dyspneic/tachypneic but states that this is his baseline "since all this lung stuff started"; she state that he was dx with lung cancer 3 years ago--recently stopped Keytruda (IV chemo) 1 month ago due to PET scan showing new areas of concern in lung and abdomen/pancreas. PMH--CAD/CABG, HTN, HLP, lung cancer, malnutrition appearance Meds--list reviewed Allergies--Heparin Tob--cigar daily, former cigerette smoker for many years per EtOH--rare Drugs--denies Onset: Today - Related Data Allergies Allergy/AdvReac Type Severity Reaction Status Date / Time heparin Allergy Tachycardia Verified 02/25/21 08:54 Home Meds: Home Meds Aspirin 81 mg PO DAILY 05/26/18 [History] Gabapentin [Neurontin] 400 mg PO QID 05/26/18 [History] atorvaSTATin [Lipitor] 80 mg PO BEDTIME 05/26/18 [History] Albuterol Sulfate [Proair Hfa] 1 - 2 puff IH Q4H PRN 03/03/19 [History] Nitroglycerin [Nitrolingual] 2 spray TL ASDIRECTED PRN 03/03/19 [History] Budesonide/Glycopyr/Formoterol [Breztri Aerosphere Inhaler] 2 puff IH BID 02/25/21 [History] Fludrocortisone [Fludrocortisone Acetate] 0.1 mg PO BID 02/25/21 [History] Furosemide [Lasix] 40 mg PO TID PRN 02/25/21 [History] Hydrocortisone [Hydrocortisone 2.5% Crm] 1 applic TOP BID 02/25/21 [History] Triamcinolone Acetonide [Kenalog 0.1% Crm] 1 applic TOP BID 02/25/21 [History] Past Medical History HEENT History: Reports: Hard of Hearing, Impaired Vision Cardiovascular History: Reports: Arrhythmia, High Cholesterol, Hypertension, Stents Respiratory History: Reports: COPD Other Respiratory History: ADENOCARCINOMA OF THE LEFT LUNG. MALINGNANT PLEURAL EFFUSION Genitourinary History: Reports: BPH Musculoskeletal History: Reports: Fracture, Osteoarthritis Neurological History: Reports: Neuropathy, Peripheral Other Neuro History: cervical stenosis Oncologic (Cancer) History: Reports: Other (See Below) Other Oncologic History: appendix - Infectious Disease History Infectious Disease History: Reports: Chicken Pox, Measles - Past Surgical History HEENT Surgical History: Reports: None Cardiovascular Surgical History: Reports: Coronary Artery Bypass, Coronary Artery Stent Respiratory Surgical History: Reports: None GI Surgical History: Reports: Appendectomy, Colonoscopy Male Surgical History: Reports: None Neurological Surgical History: Reports: C-Spine Musculoskeletal Surgical History: Reports: Other (See Below) Other Musculoskeletal Surgeries/Procedures:: spinal surgery Social & Family History - Tobacco Use Tobacco Use Status *Q: Never Tobacco User - Caffeine Use Caffeine Use: Reports: Coffee - Recreational Drug Use Recreational Drug Use: No ED ROS GENERAL - Review of Systems Review Of Systems: See Below Constitutional: Reports: Weakness, Fatigue HEENT: Reports: No Symptoms Respiratory: Reports: Shortness of Breath, Cough. Denies: Hemoptysis Cardiovascular: Reports: No Symptoms GI/Abdominal: Reports: Black Stool, Bloody Stool. Denies: Nausea, Vomiting : Reports: No Symptoms Musculoskeletal: Reports: No Symptoms Skin: Reports: No Symptoms Neurological: Reports: Dizziness, Weakness Psychiatric: Reports: No Symptoms Hematologic/Lymphatic: Reports: No Symptoms Immunologic: Reports: No Symptoms ED EXAM, GENERAL - Physical Exam Exam: See Below Exam Limited By: No Limitations General Appearance: Alert, Moderate Distress (tachypnea/dyspnea with speech interrupted due to SOB, weak appearing, ill appearing-nontoxic in nature), Cachetic Eye Exam: Bilateral Eye: EOMI, Normal Inspection Ears: Normal External Exam Nose: Normal Inspection Head: Atraumatic, Normocephalic Neck: Normal Inspection, Supple, Non-Tender, Full Range of Motion Respiratory/Chest: Lungs Clear, Respiratory Distress (tachynea/dyspnea, speech is interupted with respiratory rate--he deferrs majority of HPI/ROS to , he does answer CODE status questions himself), Accessory Muscle Use. No: Rhonchi, Wheezing Peripheral Pulses: 2+: Radial (L), Radial (R) GI/Abdominal: Normal Bowel Sounds, Soft Rectal (Males) Exam: Bloody Stool, Heme + Stool Back Exam: Normal Inspection Extremities: Normal Inspection Neurological: Alert, Oriented, Normal Cognition Psychiatric: Normal Affect, Normal Mood Skin Exam: Warm, Dry, Pallor Course - Vital Signs Text/Narrative:: 1914--at time of initial evaluation d/w patient code status, he states (family at bedside as well as [employer] for witness) he does not want intubated or CPR, "just let me go". DNR/DNI orders will be initiated. I did d/w patient and family at bedside that given current presentation it is anticipated that patient would be admitted to the hospital, they verbalized understanding/agreement with this plan 1934--received critical lab Hg-6.4 1949--received critical lab K-2.9 2024--in room to discuss today's ER findings, recommendation for admission at this time. patient appears more alert, states he feels markedly improved from when he initially arrived. BP--110/all questions answered as family has at this time 2029--call placed to Dr Jean, Hospitalist for ICU admission 2034--received call back from Dr Jean who accepts to ICU/observation admission at this time. he states he will see patient in the ICU Last Recorded V/S: Last Vital Signs Temp 96.7 F L 02/26/21 18:51 Pulse 83 02/26/21 19:52 Resp 18 02/26/21 19:52 BP 92/37 L 02/26/21 19:52 Pulse Ox 96 02/26/21 19:52 - Orders/Labs/Meds Orders: Active Orders 24 hr Category Date Time Status Cardiac Monitoring [RC] .As Directed Care 02/26/21 19:41 Active Peripheral IV Care [RC] . DIRECTED Care 02/26/21 19:15 Active Peripheral IV Care [RC] . DIRECTED Care 02/26/21 19:42 Active Nothing per Oral Now Diet [DIET] Diet 02/26/21 Dinner Active Chest 1V Frontal [CR] Stat Exams 02/26/21 19:34 Taken RED BLOOD CELLS LP [BBK] Stat Lab 02/26/21 19:20 Received Sodium Chloride 0.9% [Saline Flush] Med 02/26/21 19:14 Active 10 ml FLUSH ASDIRECTED PRN Sodium Chloride 0.9% [Saline Flush] Med 02/26/21 19:41 Active 10 ml FLUSH ASDIRECTED PRN Peripheral IV Insertion Adult [OM.PC] Routine Oth 02/26/21 19:41 Ordered Peripheral IV Insertion Adult [OM.PC] Urgent Oth 02/26/21 19:14 Ordered Transfuse Red Blood Cells [COMM] Urgent Oth 02/26/21 19:39 Ordered Resuscitation Status Stat Resus Stat 02/26/21 19:32 Ordered Medication Orders Sodium Chloride (Sodium Chloride 0.9% 10 Ml Syringe) 10 ml FLUSH ASDIRECTED PRN PRN Reason: Keep Vein Open Last Admin: 02/26/21 19:23 Dose: 10 ml Documented by: ARASH Sodium Chloride (Sodium Chloride 0.9% 10 Ml Syringe) 10 ml FLUSH ASDIRECTED PRN PRN Reason: Keep Vein Open Last Admin: 02/26/21 19:52 Dose: 10 ml Documented by: ARASH Labs: Laboratory Tests 02/26/21 02/26/21 02/26/21 Range/Units 19:20 19:20 19:30 WBC 5.4 (4.5-11.0) K/uL RBC 2.42 L (4.30-5.90) M/uL Hgb 6.4 L* D (12.0-15.0) g/dL Hct 20.6 L (40.0-54.0) % MCV 85 (80-98) fL MCH 26 L (27-31) pg MCHC 31 L (32-36) % Plt Count 242 (150-400) K/uL Neut % (Auto) 50 (36-66) % Lymph % (Auto) 33 (24-44) % [place] % (Auto) 6 (2-6) % Eos % (Auto) 9 H (2-4) % Baso % (Auto) 2 H (0-1) % PT 13.6 H (9.5-12.0) sec INR 1.25 H (0.80-1.20) Sodium 142 (140-148) mmol/L Potassium 2.9 L* (3.6-5.2) mmol/L Chloride 104 (100-108) mmol/L Carbon Dioxide 25 (21-32) mmol/L Anion Gap 15.9 H (5.0-14.0) mmol/L BUN 36 H (7-18) mg/dL Creatinine 1.4 H (0.8-1.3) mg/dL Est Cr Clr Drug Dosing 41.31 mL/min Estimated GFR (MDRD) 50 L (>60) Glucose 150 H (74-106) mg/dL Calcium 8.5 (8.5-10.1) mg/dL Total Bilirubin 0.5 (0.2-1.0) mg/dL AST 30 (15-37) U/L ALT 33 (12-78) U/L Alkaline Phosphatase 201 H (46-116) U/L Total Protein 6.6 (6.4-8.2) g/dL Albumin 2.7 L (3.4-5.0) g/dL Globulin 3.9 H (2.3-3.5) g/dL Albumin/Globulin Ratio 0.7 L (1.2-2.2) Meds: Medications Generic Name Dose Route Start Last Admin Trade Name Freq PRN Reason Stop Dose Admin Sodium Chloride 10 ml 02/26/21 19:14 02/26/21 19:23 Sodium Chloride 0.9% 10 Ml Syringe FLUSH 10 ml ASDIRECTED PRN Administration Keep Vein Open Sodium Chloride 10 ml 02/26/21 19:41 02/26/21 19:52 Sodium Chloride 0.9% 10 Ml Syringe FLUSH 10 ml ASDIRECTED PRN Administration Keep Vein Open Discontinued Medications Generic Name Dose Route Start Last Admin Trade Name Freq PRN Reason Stop Dose Admin Sodium Chloride 500 mls @ 999 mls/hr 02/26/21 19:16 02/26/21 19:23 Normal Saline IV 02/26/21 19:46 999 mls/hr .BOLUS ONE Administration - Radiology Interpretation Free Text/Narrative:: 2023--preliminary reading of chest film no infiltrate or pneumothorax -- no acute findings noted; final radiology reading pending Departure - Departure Time of Disposition: 20:39 Disposition: Refer to Observation Condition: Fair Clinical Impression: Lower gastrointestinal bleeding, Symptomatic anemia, Hypotension, Hypokalemia - Discharge Information *PRESCRIPTION DRUG MONITORING PROGRAM REVIEWED*: Not Applicable *COPY OF PRESCRIPTION DRUG MONITORING REPORT IN PATIENT SAROJ: Not Applicable Referrals: Myke Mayorga MD [Primary Care Provider] - Forms: ED Department Discharge Sepsis Event Note (ED) - Evaluation Sepsis Screening Result: Possible Severe Sepsis Risk - Focused Exam Vital Signs: Vital Signs Temp Pulse Resp BP Pulse Ox 02/26/21 19:52 83 18 92/37 L 96 02/26/21 19:33 77 28 H 85/51 L 02/26/21 19:18 89 36 H 81/46 L 100 02/26/21 18:51 96.7 F L 89 28 H 87/57 L 100 - My Orders Last 24 Hours: My Active Orders 02/26/21 Dinner Nothing per Oral Now Diet [DIET] 02/26/21 19:14 Sodium Chloride 0.9% [Saline Flush] 10 ml FLUSH ASDIRECTED PRN Peripheral IV Insertion Adult [OM.PC] Urgent 02/26/21 19:15 Peripheral IV Care [RC] . DIRECTED 02/26/21 19:20 RED BLOOD CELLS LP [BBK] Stat 02/26/21 19:32 Resuscitation Status Stat 02/26/21 19:34 Chest 1V Frontal [CR] Stat 02/26/21 19:39 Transfuse Red Blood Cells [COMM] Urgent 02/26/21 19:41 Cardiac Monitoring [RC] .As Directed Sodium Chloride 0.9% [Saline Flush] 10 ml FLUSH ASDIRECTED PRN Peripheral IV Insertion Adult [OM.PC] Routine 02/26/21 19:42 Peripheral IV Care [RC] . DIRECTED - Assessment/Plan Last 24 Hours: My Active Orders 02/26/21 Dinner Nothing per Oral Now Diet [DIET] 02/26/21 19:14 Sodium Chloride 0.9% [Saline Flush] 10 ml FLUSH ASDIRECTED PRN Peripheral IV Insertion Adult [OM.PC] Urgent 02/26/21 19:15 Peripheral IV Care [RC] . DIRECTED 02/26/21 19:20 RED BLOOD CELLS LP [BBK] Stat 02/26/21 19:32 Resuscitation Status Stat 02/26/21 19:34 Chest 1V Frontal [CR] Stat 02/26/21 19:39 Transfuse Red Blood Cells [COMM] Urgent 02/26/21 19:41 Cardiac Monitoring [RC] .As Directed Sodium Chloride 0.9% [Saline Flush] 10 ml FLUSH ASDIRECTED PRN Peripheral IV Insertion Adult [OM.PC] Routine 02/26/21 19:42 Peripheral IV Care [RC] . DIRECTED
[2021-02-26] MEDS ORDERED: Potassium Chloride 20 MEQ in Premix Bag 1 BAG IV ONE (20:40)
[2021-02-26] MEDS ORDERED: Acetaminophen 325 MG Tab PO PRN (21:46)
[2021-02-26] MEDS: Pantoprazole 40 MG Vial IVPUSH SCH (22:29)
[2021-02-26] MEDS ORDERED: diphenhydrAMINE 25 MG Cap PO PRN (23:12)
[2021-02-27] MEDS ORDERED: Furosemide 40 MG/4 ML VIAL IVPUSH ONE (04:30)
--- NOTE | 2021-02-27 04:59 | PN ---
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 He was admitted yesterday following development of melenic stools in the morning hours, persistent with maroon bloody diarrhea into the afternoon, with accompanying weakness through the nighttime hours. He has had no additional bloody stools. Denies shortness of breath. Has developed a persistent nonproductive cough. No fevers or chills noted. No shortness of breath. 2 units of packed red blood cells have been administered. OBJECTIVE: VITAL SIGNS: Temperature 36.6, pulse 75 with sinus rhythm, respiratory rate 15 with O2 sats of 100% with oxygen supplementation, and blood pressure 122/73. Total intake approximately 700 mL with 300 mL out. Followup hemoglobin after transfusion of 2 units packed red blood cells, slightly improved at 8.3. IMPRESSION AND PLAN: 1. Upper gastrointestinal bleed with melenic stools, has stabilized without passage of additional bloody stools. We will administer an additional 2 units of packed red blood cells following IV furosemide administration for increased fluid intake. Consult Surgical Services this morning and request upper endoscopy as diagnostic evaluation. The patient is in agreement. 2. Primary adenocarcinoma of the right lung with malignant pleural effusion, biopsied two days ago with pathology reports pending. He additionally has a noted abdominal mass with further decisions on management of his malignancy from Oncology services to be forthcoming. Note that followup labs today showed a partial correction of his potassium at 3.1, creatinine is stable at 1.3 in addition to hemoglobin showing rise to 8.3. Lv Sepulveda MD /[id number]
--- NOTE | 2021-02-27 07:24 | HP ---
IDENTIFYING DATA: Logan Campbell is a 70-year-old male from [place], [place], currently staying with extended family in the [place] area. CHIEF COMPLAINT: Bloody stools. HISTORY OF PRESENT ILLNESS: An elderly male who has a 2-1/2-year history of recognized adenocarcinoma of the lung, followed by Oncology Services in [place] and [place] during short term summer residence in this area. He has had evidence of progressive disease on recent PET scan completed in [place] prior to arrival in [place] 3 weeks ago. He reports increase in size of the pulmonary lesions, presentation of a malignant pleural effusion as well as a recognized mass in the upper abdomen of unknown etiology. Biopsy attempts were undertaken yesterday. Right lung biopsy was completed. The proceduralist was unable to complete a biopsy of the abdominal mass. He reports this morning he had 2 black stools. Through the afternoon, he developed anorexia, nausea, and moderate abdominal cramping with subsequent passage of orange to dark red appearing stools with accompanying weakness, lightheadedness, and dizziness. He presented to the emergency room for evaluation. PAST MEDICAL HISTORY: Noted history of previous tobacco use with advanced chronic obstructive pulmonary disease and primary adenocarcinoma of the right lung. Additionally, he has a history of hypertension, hyperlipidemia, and coronary artery disease with coronary artery bypass graft approximately 7 years ago. Additional surgeries include incidental appendectomy and excision of a right colonic lesion that was found to be benign in presentation on pathology review. ALLERGIES: REPORTED TO [facility] WITH PREVIOUS CARDIORESPIRATORY COMPLICATIONS WITH ADMINISTRATION. CURRENT MEDICATIONS: Aspirin 81 mg daily, now held; gabapentin 400 mg q.i.d.; atorvastatin 80 mg daily; albuterol metered-dose inhaler 1 to 2 puffs q.4 hours p.r.n.; nitroglycerin sublingual spray 2 sprays p.r.n. chest pain; Breztri Aerosphere inhaler 2 puffs b.i.d.; fludrocortisone 0.1 mg b.i.d.; furosemide 40 mg t.i.d. p.r.n. edema; hydrocortisone 2.5% cream; and triamcinolone 0.1% cream applied b.i.d. p.r.n. for rash. HABITS: Former user of cigarettes with an approximate [id number] history of use, now using vocational cigars. Caffeine intake is minimal at 1 to 2 cups of coffee daily. Alcohol use of less than 1 drink per day. Has noted an approximate 30-pound weight loss in the past year secondary to his malignancy. Additionally, vaccines are reviewed. Has received annual influenza vaccine and 2-shot COVID series. Denies a history of COVID exposure or active disease. 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 Son owns and operates a [employer] [place] in the [place] area. 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 He typically performs ADLs independently. Does have minimal visual changes correcting appropriately with use of prescription lenses. He does have hearing loss with noted use of hearing aids. FAMILY HISTORY: Denies familial history of recent acute respiratory infections or COVID disease. REVIEW OF SYSTEMS: NEUROLOGIC: No history of strokes or seizures. Decreased hearing. Corrective lenses are worn. Chronic peripheral neuropathy in lower extremities secondary to previous chemotherapy use. CARDIAC: Hypertension, hyperlipidemia, and coronary artery disease with prior coronary artery bypass graft. No current acute cardiac symptoms. RESPIRATORY: Previous tobacco use with obstructive pulmonary disease and associated primary lung malignancy. No hemoptysis. Chronic mild shortness of breath is noted without use of supplemental oxygen at home. GASTROINTESTINAL: As above. Denies a history of hepatitis or yellow jaundice. Intermittent dyspepsia is managed with p.r.n. antacids. GENITOURINARY: Rises twice nightly to void. History of stage 3 renal insufficiency. MUSCULOSKELETAL: Some generalized weakening with weight loss. Denies significant arthralgias. PHYSICAL EXAMINATION: GENERAL: Appearance is that of a thin elderly male, currently in no acute distress. VITALS ON ADMISSION: Blood pressure 92/37, pulse rate 83, respiratory rate 18, temperature 96.7 degrees Fahrenheit, with O2 sats of 96% on supplemental oxygen. HEENT: Mild decrease in hearing with normal canals. Glasses are worn. Sclerae anicteric. No nasal congestion. Oral mucosa is somewhat dry. Slightly slurred speech. NECK: Brisk carotid pulses. No bruits, JVD, adenopathy, or thyromegaly. LUNGS: Bronchial sounds bilaterally. No wheezes. Non-tachypneic. No rales are heard. HEART: Regular without murmurs or gallops. Sinus rhythm by cardiac monitoring. ABDOMEN: Thin, soft, nontender, and nondistended. No obvious organomegaly. Active sounds are heard. Good femoral pulses. GENITOURINARY: Omitted. RECTAL: Omitted. EXTREMITIES: Thin, without pitting edema. No open skin lesions. Cool to touch. Good distal pulses at the radial, posterior tibial, and dorsal pedal regions. Chronic neuropathic sensory changes in the feet. LABORATORY DATA: On admission, WBC 5.4, hemoglobin 6.4 with normal indices, platelet count 242,000. Pro time 13.6 with INR of 1.25. Sodium 142, potassium 2.9, BUN 36, creatinine 1.4, GFR 50, glucose 150 in a nonfasting state, calcium 8.5, AST 30, ALT 33, alkaline phosphatase chronically elevated at 201, protein 6.6, and globulin 3.9. Chest x-ray, normal cardiac silhouette, chronic interstitial pulmonary changes bilaterally. No evidence of pneumothorax. IMPRESSIONS: 1. Acute gastrointestinal bleed with melenic stools suggesting upper gastrointestinal source. The patient reports colonoscopy of 3 weeks ago completed in [place] was unremarkable. No history of peptic ulcer disease. 2. Primary adenocarcinoma of the lung with progressive disease including malignant pleural effusion and abdominal mass noted on radiographic imaging of unknown etiology, as yet unbiopsied. 3. Coronary artery disease, status post coronary artery bypass grafting. 4. Hypertension. 5. Hyperlipidemia. 6. Peripheral neuropathy. 7. Hearing loss. 8. Previous surgeries include cervical spine surgery for chronic degenerative changes. PLAN: The patient will be admitted to observation. He indicates healthcare directive, outlines wishes for supportive cares and does not desire aggressive interventional cares including CPR or ventilatory support. He is agreeable to IV fluids, blood products, and potential surgical options if able to discuss pros and cons. In light of presenting anemia, we will admit and administer 2 units of packed red blood cells with followup hemoglobin. IV Protonix has been also ordered. We will consult Surgical Services in the morning and consider upper endoscopy to evaluate for potential upper GI blood loss. Does have a tentatively scheduled oncology appointment as an outpatient tomorrow. Oncology will be notified of his hospitalization for acute GI bleed, likely will require rescheduling. Pulmonary biopsy obtained yesterday has not yet had pathology completed as the patient and caregivers await findings. Allow use of bedside commode and urinal. Offer sips of water for dry mouth. Otherwise, maintain n.p.o. status. Followup CBC and metabolic panel are also requested to monitor renal function and electrolytes. Lv Sepulveda MD /[id number]
[2021-02-27] MEDS ORDERED: Potassium Acetate 20 MEQ, Lidocaine 1% 2 ML in Sodium Chloride 0.9% 100 ML IV ONE (09:00)
[2021-02-27] MEDS ORDERED: Non-Formulary Medication 1 Each (Budesonide/Glycopyr/Formoterol [Breztri Aerosphere Inhale IH SCH (09:00)
--- NOTE | 2021-02-27 09:12 | CR ---
CHEST: AP 02/26/2021 at 7:58 PM CLINICAL HISTORY:Status post biopsy COMPARISON:Earlier same day FINDINGS: Lungs are hyperaerated. Heart and pulmonary vascular near normal. There is diffuse interstitial prominence which is chronic. Patient is status post sternotomy. Impression: No evidence of pneumothorax postbiopsy COPD.
[2021-02-27] MEDS: Pantoprazole 40 MG Vial IVPUSH SCH ×2 (09:14→21:24)
[2021-02-27] MEDS: Magnesium Sulfate/Water 2 GM/50 ML BAG IV SCH ×3 (09:21→21:24)
[2021-02-27] MEDS ORDERED: Propofol 200 MG/20 ML SDV ONE (09:22)
[2021-02-27] MEDS: Potassium Phosphates 15 MMOLE in Sodium Chloride 0.9% 250 ML IV SCH ×2 (11:47→13:56)
[2021-02-27] MEDS ORDERED: Albuterol 8 GM Inhaler INH PRN (12:12)
[2021-02-27] MEDS: FLUDROCORTISONE 0.1 MG PO SCH ×2 (13:09→21:23)
[2021-02-27] MEDS: GABAPENTIN 400 MG PO SCH ×3 (13:09→21:24)
[2021-02-27] MEDS ORDERED: Furosemide 20 MG/2 ML VIAL IVPUSH ONE (15:00)
[2021-02-27] MEDS ORDERED: Potassium Chloride 20 MEQ Tab.ER PO ONE (18:05)
[2021-02-28] MEDS: Magnesium Sulfate/Water 2 GM/50 ML BAG IV SCH ×2 (04:30→09:25)
[2021-02-28] MEDS ORDERED: Potassium Chloride 20 MEQ Tab.ER PO ONE ×2 (06:00→12:00)
[2021-02-28] MEDS: Potassium Chloride 20 MEQ, Lidocaine 1% 2 ML in Sodium Chloride 0.9% 100 ML IV SCH ×2 (07:20→09:27)
[2021-02-28] MEDS: FLUDROCORTISONE 0.1 MG PO SCH (08:26)
[2021-02-28] MEDS: GABAPENTIN 400 MG PO SCH ×2 (08:26→12:08)
[2021-02-28] MEDS: Pantoprazole 40 MG Vial IVPUSH SCH (10:38)
--- NOTE | 2021-02-28 15:02 | PCM.DCSUM1 ---
Discharge Summary - Hospital Course Brief History: Mr. Campbell is a 70-year-old gentleman who was admitted through the emergency department with weakness, lightheadedness, and hematochezia, secondary to lower GI bleed and associated acute blood loss anemia. - Discharge Data Discharge Date: 02/28/21 Discharge Disposition: Home, Self-Care 01 Condition: Stable - Referral to Home Health Primary Care Physician: Myke Mayorga MD - Discharge Diagnosis/Problem(s) (1) Acute blood loss anemia SNOMED Code(s): 704522500 ICD Code: D62 - ACUTE POSTHEMORRHAGIC ANEMIA Status: Acute Current Visit: Yes (2) Lower gastrointestinal bleeding SNOMED Code(s): 49631981 ICD Code: K92.2 - GASTROINTESTINAL HEMORRHAGE, UNSPECIFIED Status: Acute Current Visit: Yes (3) Adenocarcinoma SNOMED Code(s): 743444216, 668016571 ICD Code: C80.1 - MALIGNANT (PRIMARY) NEOPLASM, UNSPECIFIED Status: Chronic Current Visit: No (4) COPD (chronic obstructive pulmonary disease) SNOMED Code(s): 23418371 ICD Code: J44.9 - CHRONIC OBSTRUCTIVE PULMONARY DISEASE, UNSPECIFIED Status: Chronic Current Visit: No - Patient Summary/Data Consults: Consultations 02/27/21 04:21 Consult to Physician [CONS] Routine Consulting Provider: Diego Stahl Call Completed to Consulting Physician: No Reason for Consult: GI bleed, need for upper endoscopy Hospital Course: Mr. Campbell is a 70-year-old gentleman who was admitted through the emergency department with weakness, lightheadedness, shortness of breath, and hematochezia, secondary to lower GI bleed and resultant acute blood loss anemia. He has a known history of adenocarcinoma of the lung, present for the past 2- 1/2 years. Recently PET scan has shown advancement of his pulmonary disease as well as a mass at the tail of the pancreas. On the day prior to admission he underwent attempted biopsy of pulmonary mass. He is in the process of following up with oncology for further diagnosis and then recommendations concerning management. On the day of admission he noted melenic appearing stools in the morning and this progressed to dat hematochezia in the evening. He presented to the emergency department for further evaluation and reported symptoms of shortness of breath, weakness, and severe lightheadedness. Hemoglobin was found to be significantly low at 6.4. He was admitted to the hospital and given IV fluids for hydration as well as transfused 3 units of red blood cells. He had undergone a recent colonoscopy in [place], which showed significant diverticular disease but no other significant abnormalities. On the morning after admission he was seen and evaluated by Dr. Stahl, EGD was performed which did show evidence of duodenitis. He had been started on Protonix 40 mg IV twice daily at the time of admission. The duodenitis was not felt to be the obvious source of blood loss and it was suspected that he had experienced a recent diverticular bleed. Serial hemoglobin levels were obtained during the hospital stay and remained stable with no further evidence of active bleeding. He was started on a full liquid diet which was advanced to a soft low residue diet. He tolerated this without significant difficulty and no evidence of recurrent bleeding. Activity will be as tolerated and he will remain on a soft low residue diet over the next few weeks. He will be discharged home on Protonix 40 mg twice daily for 2 weeks then once daily thereafter. Follow-up appointment will be scheduled with his primary care provider and a hemoglobin level should be obtained at the time of follow-up appointment. Follow-up appointment will also be scheduled with the oncology service for further evaluation and management of his pulmonary and abdominal masses. - Patient Instructions Diet: GI Soft/Low Residue/Low Fiber Activity: As Tolerated Other/Special Instructions: Please schedule follow-up appointment with primary care provider, hemoglobin level should be obtained at the time of follow-up appointment. Please schedule follow-up appointment with oncology for ongoing evaluation and management of pulmonary and abdominal mass. - Discharge Plan *PRESCRIPTION DRUG MONITORING PROGRAM REVIEWED*: Not Applicable *COPY OF PRESCRIPTION DRUG MONITORING REPORT IN PATIENT SAROJ: Not Applicable Prescriptions/Med Rec: Pantoprazole Sodium [Protonix] 40 mg PO BID #2 tablet. Home Medications: Home Meds Aspirin 81 mg PO DAILY 05/26/18 [History] Gabapentin [Neurontin] 400 mg PO QID 05/26/18 [History] atorvaSTATin [Lipitor] 80 mg PO BEDTIME 05/26/18 [History] Albuterol Sulfate [Proair Hfa] 1 - 2 puff IH Q4H PRN 03/03/19 [History] Nitroglycerin [Nitrolingual] 2 spray TL ASDIRECTED PRN 03/03/19 [History] Budesonide/Glycopyr/Formoterol [Breztri Aerosphere Inhaler] 2 puff IH BID 02/25/21 [History] Fludrocortisone [Florinef] 0.1 mg PO BID 02/25/21 [History] Furosemide [Lasix] 40 mg PO TID PRN 02/25/21 [History] Hydrocortisone [Hydrocortisone 2.5% Crm] 1 applic TOP BID 02/25/21 [History] Triamcinolone Acetonide [Kenalog 0.1% Crm] 1 applic TOP BID 02/25/21 [History] Pantoprazole Sodium [Protonix] 40 mg PO BID #2 tablet. 02/28/21 [Rx] Patient Handouts: Gastrointestinal Bleeding Forms: ED Department Discharge Referrals: Myke Mayorga MD [Primary Care Provider] - - Discharge Summary/Plan Comment DC Time >30 min.: No - Patient Data Vitals - Most Recent: Last Vital Signs Temp 96.2 F L 02/28/21 12:11 Pulse 58 L 02/28/21 14:00 Resp 16 02/28/21 14:00 BP 124/67 02/28/21 14:00 Pulse Ox 99 02/28/21 14:00 Weight - Most Recent: 140 lb 14.006 oz I&O - Last 24 hours: Intake & Output 02/27/21 02/28/21 02/28/21 22:59 06:59 14:59 Intake Total 8995 457 9989 Output Total 1475 725 Balance -218 -625 1330 Lab Results - Last 24 hrs: Laboratory Results - last 24 hr 02/27/21 02/27/21 02/27/21 Range/Units 17:00 17:00 23:00 WBC (4.5-11.0) K/uL RBC (4.30-5.90) M/uL Hgb 10.4 L 9.7 L (12.0-15.0) g/dL Hct (40.0-54.0) % MCV (80-98) fL MCH (27-31) pg MCHC (32-36) % Plt Count (150-400) K/uL Sodium (140-148) mmol/L Potassium 3.4 L (3.6-5.2) mmol/L Chloride (100-108) mmol/L Carbon Dioxide (21-32) mmol/L Anion Gap (5.0-14.0) mmol/L BUN (7-18) mg/dL Creatinine (0.8-1.3) mg/dL Est Cr Clr Drug Dosing mL/min Estimated GFR (MDRD) (>60) Glucose (74-106) mg/dL Calcium (8.5-10.1) mg/dL Phosphorus (2.5-4.9) mg/dL Magnesium (1.8-2.4) mg/dL Total Bilirubin (0.2-1.0) mg/dL AST (15-37) U/L ALT (12-78) U/L Alkaline Phosphatase (46-116) U/L NT-Pro-B Natriuret Pep (5-125) pg/mL Total Protein (6.4-8.2) g/dL Albumin (3.4-5.0) g/dL Globulin (2.3-3.5) g/dL Albumin/Globulin Ratio (1.2-2.2) 02/28/21 02/28/21 Range/Units 05:05 05:05 WBC 4.4 L (4.5-11.0) K/uL RBC 3.48 L (4.30-5.90) M/uL Hgb 10.0 L (12.0-15.0) g/dL Hct 29.9 L (40.0-54.0) % MCV 86 (80-98) fL MCH 29 (27-31) pg MCHC 33 (32-36) % Plt Count 146 L (150-400) K/uL Sodium 142 (140-148) mmol/L Potassium 2.8 L* (3.6-5.2) mmol/L Chloride 106 (100-108) mmol/L Carbon Dioxide 26 (21-32) mmol/L Anion Gap 12.8 (5.0-14.0) mmol/L BUN 22 H (7-18) mg/dL Creatinine 1.2 (0.8-1.3) mg/dL Est Cr Clr Drug Dosing 50.29 mL/min Estimated GFR (MDRD) 60 (>60) Glucose 93 (74-106) mg/dL Calcium 8.0 L (8.5-10.1) mg/dL Phosphorus 3.6 (2.5-4.9) mg/dL Magnesium 2.4 (1.8-2.4) mg/dL Total Bilirubin 0.7 (0.2-1.0) mg/dL AST 30 (15-37) U/L ALT 33 (12-78) U/L Alkaline Phosphatase 193 H (46-116) U/L NT-Pro-B Natriuret Pep 2616 H (5-125) pg/mL Total Protein 6.2 L (6.4-8.2) g/dL Albumin 2.5 L (3.4-5.0) g/dL Globulin 3.7 H (2.3-3.5) g/dL Albumin/Globulin Ratio 0.7 L (1.2-2.2) ELLI Results - Last 24 hrs: Microbiology 02/27/21 10:58 CLOtest - Final Stomach NEGATIVE CLOTEST REFERENCE RANGE: NEGATIVE Med Orders - Current: Current Medications Acetaminophen (Acetaminophen 325 Mg Tab) 650 mg PO Q4H PRN PRN Reason: Pain Albuterol (Albuterol 8 Gm Inhaler) 0 gm INH Q4H PRN PRN Reason: Shortness of Breath Diphenhydramine HCl (Diphenhydramine 25 Mg Cap) 25 mg PO Q6H PRN PRN Reason: Itching Last Admin: 02/27/21 00:34 Dose: 25 mg Documented by: Fludrocortisone Acetate (Fludrocortisone 0.1 Mg Ptom) 0.1 mg PO BID [facility] Last Admin: 02/28/21 08:26 Dose: 0.1 mg Documented by: Gabapentin (Gabapentin 400 Mg Ptom) 400 mg PO 0800,1200,1600,2100 [facility] Last Admin: 02/28/21 12:08 Dose: 400 mg Documented by: Magnesium Sulfate (Magnesium Sulfate In Water 2 Gm/50 Ml) 2 gm in 50 mls @ 25 mls/hr IV Q6H [facility] Stop: 03/01/21 05:59 Last Admin: 02/28/21 09:25 Dose: 25 mls/hr Documented by: Non-Formulary Medication (Budesonide/Glycopyr/Formoterol [Breztri Aerosphere Inhaler]) 2 puff IH BID [facility] Pantoprazole Sodium (Pantoprazole 40 Mg Vial) 40 mg IVPUSH Q12H [facility] Last Admin: 02/28/21 10:38 Dose: 40 mg Documented by: Sodium Chloride (Sodium Chloride 0.9% 10 Ml Syringe) 10 ml FLUSH ASDIRECTED PRN PRN Reason: Keep Vein Open Last Admin: 02/26/21 19:23 Dose: 10 ml Documented by: Sodium Chloride (Sodium Chloride 0.9% 10 Ml Syringe) 10 ml FLUSH ASDIRECTED PRN PRN Reason: Keep Vein Open Last Admin: 02/26/21 19:52 Dose: 10 ml Documented by: Discontinued Medications Furosemide (Furosemide 40 Mg/4 Ml Vial) 40 mg IVPUSH ONETIME ONE Stop: 02/27/21 04:31 Last Admin: 02/27/21 05:00 Dose: 40 mg Documented by: Furosemide (Furosemide 20 Mg/2 Ml Vial) 20 mg IVPUSH ONETIME ONE Stop: 02/27/21 15:01 Last Admin: 02/27/21 15:53 Dose: 20 mg Documented by: Sodium Chloride (Normal Saline) 500 mls @ 999 mls/hr IV .BOLUS ONE Stop: 02/26/21 19:46 Last Admin: 02/26/21 19:23 Dose: 999 mls/hr Documented by: Potassium Chloride 20 meq/ (Premix) 100 mls @ 50 mls/hr IV ONETIME ONE Stop: 02/26/21 22:39 Last Admin: 02/26/21 21:01 Dose: 50 mls/hr Documented by: Potassium Phosphate 15 mmole/ (Sodium Chloride) 255 mls @ 125 mls/hr IV Q2H [facility] Stop: 02/27/21 14:59 Last Admin: 02/27/21 13:56 Dose: 125 mls/hr Documented by: Potassium Acetate 20 meq/Lidocaine HCl 2 ml/ Sodium Chloride 112 mls @ 56 mls/hr IV ONETIME ONE Stop: 02/27/21 10:59 Last Admin: 02/27/21 08:47 Dose: 56 mls/hr Documented by: Potassium Chloride 20 meq/Lidocaine HCl 2 ml/ Sodium Chloride 112 mls @ 50 mls/hr IV Q2H [facility] Stop: 02/28/21 11:14 Last Admin: 02/28/21 09:27 Dose: 50 mls/hr Documented by: Potassium Chloride (Potassium Chloride 20 Meq Tab.Er) 40 meq PO ONETIME ONE Stop: 02/27/21 18:06 Last Admin: 02/27/21 18:17 Dose: 40 meq Documented by: Potassium Chloride (Potassium Chloride 20 Meq Tab.Er) 40 meq PO ONETIME ONE Stop: 02/28/21 06:01 Last Admin: 02/28/21 06:25 Dose: 40 meq Documented by: Potassium Chloride (Potassium Chloride 20 Meq Tab.Er) 40 meq PO ONETIME ONE Stop: 02/28/21 12:01 Last Admin: 02/28/21 12:08 Dose: 40 meq Documented by: Propofol (Propofol 200 Mg/20 Ml Sdv) Confirm Administered Dose 200 mg .ROUTE .STK-MED ONE Stop: 02/27/21 09:23 - Exam General: Reports: Alert, Oriented, Cooperative, No Acute Distress Lungs: Reports: Clear to Auscultation, Normal Respiratory Effort, Decreased Breath Sounds Cardiovascular: Reports: Regular Rate, Regular Rhythm, No Murmurs GI/Abdominal Exam: Soft, Non-Tender, No Organomegaly, No Distention Extremities: Non-Tender, No Pedal Edema
--- NOTE | 2021-03-12 16:37 | OR ---
DATE OF PROCEDURE: 02/27/2021 SURGEON: Diego Stahl MD PREOPERATIVE DIAGNOSIS: Gastrointestinal bleeding. POSTOPERATIVE DIAGNOSIS: Recent gastrointestinal bleeding with minimal duodenitis (no blood or upper gastrointestinal bleeding source identified). OPERATIVE PROCEDURE: Upper gastrointestinal endoscopy with antral biopsies for CLOtest. ANESTHESIA: IV sedation. INDICATION FOR PROCEDURE: This is a 70-year-old male presenting with some significant GI bleeding requiring transfusions. This appears to have clinically stopped at this point. The plan is to proceed with upper endoscopy for diagnostic purposes (the patient does have a known history of diverticulosis with the patient having a colonoscopy several weeks ago while he was still living in [place]). The potential risks of the procedure including bleeding and perforation were discussed, and the patient wishes to proceed. DETAILS OF PROCEDURE: The patient was taken to the operating room and placed on the left lateral decubitus position. IV sedation was administered, after which the upper GI endoscope was passed orally through the length of the esophagus into the stomach with retroflexion view of the fundus, and thereafter through the pyloric channel into the junction of the third and fourth portions of the duodenum. The patient had normal hypopharynx, larynx, upper esophageal sphincter, and esophageal body. At the EG junction, no significant hiatal hernia or inflammation was noted. Within the stomach, no significant abnormalities were noted. Pyloric channel was widely patent. There was a very minimal patchy duodenitis in the duodenal bulb, otherwise the remainder of the duodenal exam was unremarkable. Biopsies were then obtained from the antrum to establish the patient's H pylori status. Minimal bleeding from the biopsy sites was seen and the procedure then concluded. At this point, it looked like the patient did not have a likely upper GI bleeding source to the level of the distal duodenum. As mentioned above, did obtain records from his recent colonoscopy in [place], which did show diverticular disease. Given this, I would suspect the patient's most likely bleeding source had been from the colonic diverticula. Diego Stahl MD /[id number]
== END 2021-02-28 15:15 | disposition home or self-care (01) ==
LOC: JP.ED 18:39 → JP.ICU 20:41
PROVIDERS: ADMIT Family Medicine; ATTEND Hospitalist
DX: K29.80 Duodenitis without bleeding (principal); K57.30 Diverticulosis of large intestine without perforation or abscess without bleeding; K92.1 Melena; D62 Acute posthemorrhagic anemia; C80.1 Malignant (primary) neoplasm, unspecified; J44.9 Chronic obstructive pulmonary disease, unspecified; I10 Essential (primary) hypertension; E78.5 Hyperlipidemia, unspecified; I25.10 Atherosclerotic heart disease of native coronary artery without angina pectoris; G62.9 Polyneuropathy, unspecified; H91.90 Unspecified hearing loss, unspecified ear; Z88.8 Allergy status to other drugs, medicaments and biological substances; Z79.82 Long term (current) use of aspirin; Z87.891 Personal history of nicotine dependence; Z95.1 Presence of aortocoronary bypass graft; R06.82 Tachypnea, not elsewhere classified
CPT/HCPCS: 36415; 36430; 43239; 71045; 80048; 80053; 83735; 83880; 84100; 84132; 85018; 85025; 85027; 85610; 86850; 86900; 86901; 86920; 86922; 87081; 96365; 96366; 96368; 96375; 96376; 99217; 99285; A9270; C9113; G0378; J1940; J2001; J2704; J3475; J3480; J7040; J7050; P9016; 96374; J3490

== ENCOUNTER 2021-03-27 14:52 | Emergency (ER) | payer MEDICARE, OTHER ==
[2021-03-27] MEDS ORDERED: Sodium Chloride 0.9% 10 ML Syringe FLUSH PRN (16:21)
[2021-03-27] MEDS ORDERED: Furosemide 40 MG/4 ML VIAL IVPUSH ONE (16:22)
[2021-03-27] MEDS ORDERED: Potassium Chloride 20 MEQ Tab.ER PO ONE (16:25)
--- NOTE | 2021-03-27 16:28 | EDM.PDOC ---
ED HPI GENERAL MEDICAL PROBLEM - General Chief Complaint: Cardiovascular Problem Stated Complaint: CLINIC CALLED ER Time Seen by Provider: 03/27/21 16:23 Source of Information: Reports: Patient History Limitations: Reports: No Limitations - History of Present Illness INITIAL COMMENTS - FREE TEXT/NARRATIVE: pt got his first chemo for adeno ca of the lung. He was given alot of fluid at that time and now he has markedly swollen legs and he has mild sob. The leg swelling started about 2 days ago. He was sob today. pt does have a borderline k at 3.4. Onset: Gradual, Other (last 2-3 days. ) Duration: Day(s): Location: Reports: Chest, Generalized Associated Symptoms: Reports: Shortness of Breath, Other (leg swelling. ) - Related Data Allergies Allergy/AdvReac Type Severity Reaction Status Date / Time heparin Allergy Tachycardia Verified 04/01/21 08:29 Home Meds: Home Meds Aspirin 81 mg PO DAILY 05/26/18 [History] Gabapentin [Neurontin] 400 mg PO QID 05/26/18 [History] atorvaSTATin [Lipitor] 80 mg PO BEDTIME 05/26/18 [History] Albuterol Sulfate [Proair Hfa] 1 - 2 puff IH Q4H PRN 03/03/19 [History] Nitroglycerin [Nitrolingual] 2 spray TL ASDIRECTED PRN 03/03/19 [History] Budesonide/Glycopyr/Formoterol [Breztri Aerosphere Inhaler] 2 puff IH BID 02/25/21 [History] Fludrocortisone [Florinef] 0.1 mg PO BID 02/25/21 [History] Furosemide [Lasix] 40 mg PO TID PRN 02/25/21 [History] Hydrocortisone [Hydrocortisone 2.5% Crm] 1 applic TOP BID 02/25/21 [History] Triamcinolone Acetonide [Kenalog 0.1% Crm] 1 applic TOP BID 02/25/21 [History] Pantoprazole Sodium [Protonix] 40 mg PO BID #30 tablet.dr 02/28/21 [Rx] Ferrous Sulfate [Iron] 325 mg PO DAILY 04/01/21 [History] Past Medical History HEENT History: Reports: Hard of Hearing, Impaired Vision Cardiovascular History: Reports: Arrhythmia, High Cholesterol, Hypertension, Stents Respiratory History: Reports: COPD Other Respiratory History: ADENOCARCINOMA OF THE LEFT LUNG. MALINGNANT PLEURAL EFFUSION Genitourinary History: Reports: BPH Musculoskeletal History: Reports: Fracture, Osteoarthritis Neurological History: Reports: Neuropathy, Peripheral Other Neuro History: cervical stenosis Oncologic (Cancer) History: Reports: Other (See Below) Other Oncologic History: appendix - Infectious Disease History Infectious Disease History: Reports: Chicken Pox, Measles - Past Surgical History HEENT Surgical History: Reports: None Cardiovascular Surgical History: Reports: Coronary Artery Bypass, Coronary Artery Stent Respiratory Surgical History: Reports: None GI Surgical History: Reports: Appendectomy, Colonoscopy Male Surgical History: Reports: None Neurological Surgical History: Reports: C-Spine Musculoskeletal Surgical History: Reports: Other (See Below) Other Musculoskeletal Surgeries/Procedures:: spinal surgery Social & Family History - Tobacco Use Tobacco Use Comment: occ - Caffeine Use Caffeine Use: Reports: Coffee ED ROS GENERAL - Review of Systems Review Of Systems: See Below Constitutional: Reports: No Symptoms HEENT: Reports: No Symptoms Respiratory: Reports: Shortness of Breath Cardiovascular: Reports: No Symptoms Endocrine: Reports: No Symptoms GI/Abdominal: Reports: No Symptoms : Reports: No Symptoms Musculoskeletal: Reports: No Symptoms Skin: Reports: No Symptoms Neurological: Reports: No Symptoms Psychiatric: Reports: No Symptoms ED EXAM, GENERAL - Physical Exam Exam: See Below Free Text/Narrative:: pt arrived with markedly swollen legs and feeling sob. He had alot of fluid with his last chemo. Exam Limited By: No Limitations General Appearance: Alert, Anxious, Mild Distress, Other (pupils are equal and reactive. ) Ears: Normal TMs Nose: Normal Inspection Throat/Mouth: Normal Inspection Head: Atraumatic Neck: Normal Inspection Respiratory/Chest: Decreased Breath Sounds, Other (mild distress but good o2 sats. ) Cardiovascular: Regular Rate, Rhythm, Tachycardia GI/Abdominal: Soft, Non-Tender (Male) Exam: Deferred Rectal (Males) Exam: Deferred Extremities: Pedal Edema Neurological: Alert, Oriented, Normal Cognition Psychiatric: Anxious Course - Vital Signs Last Recorded V/S: Last Vital Signs Temp 36.7 C 03/27/21 16:09 Pulse 70 03/27/21 17:30 Resp 16 03/27/21 16:09 BP 164/96 H 03/27/21 17:30 Pulse Ox 96 03/27/21 16:09 - Orders/Labs/Meds Meds: Medications Discontinued Medications Generic Name Dose Route Start Last Admin Trade Name Freq PRN Reason Stop Dose Admin Furosemide 60 mg 03/27/21 16:22 03/27/21 16:32 Furosemide 40 Mg/4 Ml Vial IVPUSH 03/27/21 16:23 60 mg ONETIME ONE Administration Potassium Chloride 20 meq 03/27/21 16:25 03/27/21 16:32 Potassium Chloride 20 Meq Tab.Er PO 03/27/21 16:26 20 meq ONETIME ONE Administration Sodium Chloride 10 ml 03/27/21 16:21 03/27/21 16:33 Sodium Chloride 0.9% 10 Ml Syringe FLUSH 10 ml ASDIRECTED PRN Administration Keep Vein Open - Re-Assessments/Exams Free Text/Narrative Re-Assessment/Exam: 04/09/21 18:42 pt was given 60 mg of lasix iv. He had excellent output with that. He is feeling better. He was given k 20 meq. Departure - Departure Time of Disposition: 17:27 Disposition: Home, Self-Care 01 Condition: Fair Clinical Impression: Fluid overload, Adenocarcinoma of lung Instructions: Edema Referrals: Myke Mayorga MD [Primary Care Provider] - Forms: ED Department Discharge Care Plan Goals: pt did put out over 900cc. pt will use oral lasix at home. He will be recheduled by emelyn casas on thursday. Lasix 20mg tabs 2 tabs daily for the next 2 days then 1 tab daily, kcl 10 kelby 2 tabs daily for 2 days and then 1 tab daily Sepsis Event Note (ED) - Evaluation Sepsis Screening Result: No Definite Risk
== END 2021-03-27 17:52 | disposition home or self-care (01) ==
LOC: JP.ED 14:52
DX: C34.92 Malignant neoplasm of unspecified part of left bronchus or lung (principal); E87.70 Fluid overload, unspecified; R60.0 Localized edema; I10 Essential (primary) hypertension; J44.9 Chronic obstructive pulmonary disease, unspecified; Z79.82 Long term (current) use of aspirin; Z95.1 Presence of aortocoronary bypass graft; Z88.8 Allergy status to other drugs, medicaments and biological substances; Z79.899 Other long term (current) drug therapy
CPT/HCPCS: 36415; 83880; 96374; 99284; A9270; J1940

== ENCOUNTER 2021-04-01 08:07 | Emergency (ER) | payer MEDICARE, OTHER ==
[2021-04-01] MEDS ORDERED: Sodium Chloride 0.9% 10 ML Syringe FLUSH PRN (08:46)
--- NOTE | 2021-04-01 08:50 | EDM.PDOC ---
ED HPI GENERAL MEDICAL PROBLEM - General Chief Complaint: Gastrointestinal Problem Stated Complaint: BLOODY STOOL Time Seen by Provider: 04/01/21 08:40 Source of Information: Reports: Patient, Family, Old Records, RN Notes Reviewed History Limitations: Reports: No Limitations - History of Present Illness INITIAL COMMENTS - FREE TEXT/NARRATIVE: 70-year-old gentleman presents emergency department day complaint of weakness and shortness of breath as well as black tarry stools, he has a known history of adenocarcinoma has had 1 round chemotherapy about 2 weeks ago does have a h istory of black tarry stools and being anemic last hemoglobin 6.4 in middle of February 2011 did receive transfusion hospitalization at that time. Underwent colonoscopy states he was doing well for the last couple weeks however the last 3 days he has had increased black tarry stools increased weakness increased shortness of breath, is scheduled for chemotherapy treatment tomorrow - Related Data Allergies Allergy/AdvReac Type Severity Reaction Status Date / Time heparin Allergy Tachycardia Verified 04/01/21 08:29 Home Meds: Home Meds Aspirin 81 mg PO DAILY 05/26/18 [History] Gabapentin [Neurontin] 400 mg PO QID 05/26/18 [History] atorvaSTATin [Lipitor] 80 mg PO BEDTIME 05/26/18 [History] Albuterol Sulfate [Proair Hfa] 1 - 2 puff IH Q4H PRN 03/03/19 [History] Nitroglycerin [Nitrolingual] 2 spray TL ASDIRECTED PRN 03/03/19 [History] Budesonide/Glycopyr/Formoterol [Breztri Aerosphere Inhaler] 2 puff IH BID 02/25/21 [History] Fludrocortisone [Florinef] 0.1 mg PO BID 02/25/21 [History] Furosemide [Lasix] 40 mg PO TID PRN 02/25/21 [History] Hydrocortisone [Hydrocortisone 2.5% Crm] 1 applic TOP BID 02/25/21 [History] Triamcinolone Acetonide [Kenalog 0.1% Crm] 1 applic TOP BID 02/25/21 [History] Pantoprazole Sodium [Protonix] 40 mg PO BID #30 tablet. 02/28/21 [Rx] Ferrous Sulfate [Iron] 325 mg PO DAILY 04/01/21 [History] Past Medical History HEENT History: Reports: Hard of Hearing, Impaired Vision Cardiovascular History: Reports: Arrhythmia, CAD, High Cholesterol, Hypertension, Stents Respiratory History: Reports: COPD Other Respiratory History: ADENOCARCINOMA OF THE LEFT LUNG. MALINGNANT PLEURAL EFFUSION Genitourinary History: Reports: BPH Musculoskeletal History: Reports: Fracture, Osteoarthritis Neurological History: Reports: Neuropathy, Peripheral Other Neuro History: cervical stenosis Oncologic (Cancer) History: Reports: Other (See Below) Other Oncologic History: appendix - Infectious Disease History Infectious Disease History: Reports: Chicken Pox, Measles - Past Surgical History HEENT Surgical History: Reports: None Cardiovascular Surgical History: Reports: Coronary Artery Bypass, Coronary Artery Stent Respiratory Surgical History: Reports: None GI Surgical History: Reports: Appendectomy, Colonoscopy Male Surgical History: Reports: None Neurological Surgical History: Reports: C-Spine Musculoskeletal Surgical History: Reports: Other (See Below) Other Musculoskeletal Surgeries/Procedures:: spinal surgery Social & Family History - Tobacco Use Tobacco Use Status *Q: Current Every Day Tobacco User Years of Tobacco use: 60 Packs/Tins Daily: 1 - Caffeine Use Caffeine Use: Reports: Coffee - Recreational Drug Use Recreational Drug Use: No ED ROS GENERAL - Review of Systems Review Of Systems: See Below Constitutional: Reports: Weakness, Fatigue. Denies: Fever, Chills HEENT: Reports: No Symptoms Respiratory: Reports: Shortness of Breath. Denies: Wheezing, Cough, Sputum Cardiovascular: Reports: Dyspnea on Exertion. Denies: Chest Pain GI/Abdominal: Reports: Black Stool : Reports: No Symptoms ED EXAM, GI/ABD - Physical Exam Exam: See Below Exam Limited By: No Limitations General Appearance: Alert, WD/WN, No Apparent Distress Eyes: Bilateral: Pale Conjunctiva Respiratory/Chest: No Respiratory Distress, Lungs Clear, Normal Breath Sounds, No Accessory Muscle Use, Chest Non-Tender Cardiovascular: Regular Rate, Rhythm, No Murmur GI/Abdominal Exam: Soft, Non-Tender Extremities: No Pedal Edema Course - Vital Signs Last Recorded V/S: Last Vital Signs Temp 97.8 F 04/01/21 15:28 Pulse 64 04/01/21 15:28 Resp 18 04/01/21 15:28 BP 146/81 H 04/01/21 15:28 Pulse Ox 98 04/01/21 15:28 - Orders/Labs/Meds Orders: Active Orders 24 hr Category Date Time Status Peripheral IV Care [RC] . DIRECTED Care 04/01/21 08:47 Active Lactated Ringers [Ringers, Lactated] 1,000 ml Med 04/01/21 09:00 Active IV ASDIRECTED Sodium Chloride 0.9% [Saline Flush] Med 04/01/21 08:46 Active 10 ml FLUSH ASDIRECTED PRN Peripheral IV Insertion Adult [OM.PC] Urgent Oth 04/01/21 08:46 Ordered Medication Orders Lactated Ringer's (Ringers, Lactated) 1,000 mls @ 125 mls/hr IV ASDIRECTED ROSALVA Last Admin: 04/01/21 09:02 Dose: 125 mls/hr Documented by: ALLIE Sodium Chloride (Sodium Chloride 0.9% 10 Ml Syringe) 10 ml FLUSH ASDIRECTED PRN PRN Reason: Keep Vein Open Last Admin: 04/01/21 09:48 Dose: 10 ml Documented by: ALLIE Labs: Laboratory Tests 04/01/21 04/01/21 04/01/21 Range/Units 08:50 08:50 08:50 WBC 2.2 L (4.5-11.0) K/uL RBC 2.58 L (4.30-5.90) M/uL Hgb 6.9 L* D (12.0-15.0) g/dL Hct 22.2 L (40.0-54.0) % MCV 86 (80-98) fL MCH 27 (27-31) pg MCHC 31 L (32-36) % Plt Count 164 (150-400) K/uL Neut % (Auto) 25.2 L (36-66) % Lymph % (Auto) 56.6 H (24-44) % Berks % (Auto) 11.8 H (2-6) % Eos % (Auto) 4.1 H (2-4) % Baso % (Auto) 2.3 H (0-1) % Sodium 142 (140-148) mmol/L Potassium 2.7 L* (3.6-5.2) mmol/L Chloride 104 (100-108) mmol/L Carbon Dioxide 25 (21-32) mmol/L Anion Gap 15.7 H (5.0-14.0) mmol/L BUN 17 (7-18) mg/dL Creatinine 1.4 H (0.8-1.3) mg/dL Est Cr Clr Drug Dosing 44.37 mL/min Estimated GFR (MDRD) 50 L (>60) Glucose 91 (74-106) mg/dL Lactic Acid 2.3 H (0.4-2.0) mmol/L Calcium 8.3 L (8.5-10.1) mg/dL Total Bilirubin 0.5 (0.2-1.0) mg/dL AST 15 (15-37) U/L ALT 19 (12-78) U/L Alkaline Phosphatase 161 H (46-116) U/L Troponin I < 0.017 (0.000-0.056) ng/mL Total Protein 6.5 (6.4-8.2) g/dL Albumin 2.7 L (3.4-5.0) g/dL Globulin 3.8 H (2.3-3.5) g/dL Albumin/Globulin Ratio 0.7 L (1.2-2.2) Lipase 27 L (73-393) U/L Urine Color (YELLOW) Urine Appearance (CLEAR) Urine pH (5.0-8.0) Ur Specific Edwards (1.008-1.030) Urine Protein (NEGATIVE) mg/dL Urine Glucose (UA) (NEGATIVE) mg/dL Urine Ketones (NEGATIVE) mg/dL Urine Occult Blood (NEGATIVE) Urine Nitrite (NEGATIVE) Urine Bilirubin (NEGATIVE) Urine Urobilinogen (0.2-1.0) EU/dL Ur Leukocyte Esterase (NEGATIVE) Urine RBC (0-5) Urine WBC (0-5) Ur Epithelial Cells Amorphous Sediment Urine Bacteria Urine Mucus Blood Type Gel Antibody Screen Crossmatch 04/01/21 04/01/21 Range/Units 09:10 12:43 WBC (4.5-11.0) K/uL RBC (4.30-5.90) M/uL Hgb (12.0-15.0) g/dL Hct (40.0-54.0) % MCV (80-98) fL MCH (27-31) pg MCHC (32-36) % Plt Count (150-400) K/uL Neut % (Auto) (36-66) % Lymph % (Auto) (24-44) % Berks % (Auto) (2-6) % Eos % (Auto) (2-4) % Baso % (Auto) (0-1) % Sodium (140-148) mmol/L Potassium (3.6-5.2) mmol/L Chloride (100-108) mmol/L Carbon Dioxide (21-32) mmol/L Anion Gap (5.0-14.0) mmol/L BUN (7-18) mg/dL Creatinine (0.8-1.3) mg/dL Est Cr Clr Drug Dosing mL/min Estimated GFR (MDRD) (>60) Glucose (74-106) mg/dL Lactic Acid (0.4-2.0) mmol/L Calcium (8.5-10.1) mg/dL Total Bilirubin (0.2-1.0) mg/dL AST (15-37) U/L ALT (12-78) U/L Alkaline Phosphatase (46-116) U/L Troponin I (0.000-0.056) ng/mL Total Protein (6.4-8.2) g/dL Albumin (3.4-5.0) g/dL Globulin (2.3-3.5) g/dL Albumin/Globulin Ratio (1.2-2.2) Lipase (73-393) U/L Urine Color Yellow (YELLOW) Urine Appearance Clear (CLEAR) Urine pH 7.0 (5.0-8.0) Ur Specific Edwards 1.020 (1.008-1.030) Urine Protein Negative (NEGATIVE) mg/dL Urine Glucose (UA) Negative (NEGATIVE) mg/dL Urine Ketones Negative (NEGATIVE) mg/dL Urine Occult Blood Negative (NEGATIVE) Urine Nitrite Negative (NEGATIVE) Urine Bilirubin Negative (NEGATIVE) Urine Urobilinogen 0.2 (0.2-1.0) EU/dL Ur Leukocyte Esterase Negative (NEGATIVE) Urine RBC 0-5 (0-5) Urine WBC 0-5 (0-5) Ur Epithelial Cells Not seen Amorphous Sediment Not seen Urine Bacteria Not seen Urine Mucus Not seen Blood Type O NEGATIVE Gel Antibody Screen Negative Crossmatch See Detail Meds: Medications Generic Name Dose Route Start Last Admin Trade Name Freq PRN Reason Stop Dose Admin Lactated Ringer's 1,000 mls @ 125 mls/hr 04/01/21 09:00 04/01/21 09:02 Ringers, Lactated IV 125 mls/hr ASDIRECTED ROSALVA Administration Sodium Chloride 10 ml 04/01/21 08:46 04/01/21 09:48 Sodium Chloride 0.9% 10 Ml Syringe FLUSH 10 ml ASDIRECTED PRN Administration Keep Vein Open Discontinued Medications Generic Name Dose Route Start Last Admin Trade Name Myriam PRN Reason Stop Dose Admin Potassium Chloride 20 meq/ 100 mls @ 50 mls/hr 04/01/21 09:32 04/01/21 09:42 Premix IV 04/01/21 11:31 50 mls/hr ONETIME ONE Administration Tranexamic Acid 1,000 mg/ 110 mls @ 660 mls/hr 04/01/21 15:13 04/01/21 15:29 Sodium Chloride IV 04/01/21 15:22 660 mls/hr ONETIME ONE Administration Potassium Chloride 40 meq 04/01/21 09:32 04/01/21 09:37 Potassium Chloride 20 Meq Tab.Er PO 04/01/21 09:33 40 meq ONETIME ONE Administration - Re-Assessments/Exams Free Text/Narrative Re-Assessment/Exam: 04/01/21 10:09 Called and discussed case with Dr. Jenkins emergency room physician [facility] at 1010 kindly accepted the patient in transfer however [facility] does not have any beds at this time they will reassess at 1400. In the meantime he is being transfused 1 unit of blood as well as 20 mEq of potassium was given 40 mEq potassium p.o. Plan is to transfer to [place] for further intervention and evaluation for his GI bleed with unknown etiology at this time Departure - Departure Time of Disposition: 16:05 Disposition: Home, Self-Care 01 Condition: Fair Clinical Impression: Hematochezia - Discharge Information Instructions: Gastrointestinal Bleeding Referrals: Myke Mayorga MD [Primary Care Provider] - Forms: ED Department Discharge Additional Instructions: Please follow-up with your primary care in the next 1 to 3 days for further evaluation call or return to the emergency department with worsening of symptoms Sepsis Event Note (ED) - Evaluation Sepsis Screening Result: No Definite Risk - Focused Exam Vital Signs: Vital Signs Temp Temp Pulse Resp BP Pulse Ox 04/01/21 15:28 97.8 F 64 18 146/81 H 98 04/01/21 12:40 97.3 F 65 18 144/70 H 99 04/01/21 12:14 65 18 140/57 L 96 04/01/21 11:44 97.7 F 64 18 150/79 H 98 04/01/21 11:14 64 17 158/82 H 97 04/01/21 10:44 97.6 F 64 16 154/73 H 100 04/01/21 10:29 97.3 F 66 16 129/72 100 04/01/21 10:14 97.2 F 60 16 136/66 98 04/01/21 09:18 65 100/60 99 04/01/21 08:48 70 109/58 L 100 04/01/21 08:25 97.5 F 84 24 H 106/64 98 04/01/21 08:23 97.5 F 84 24 H 106/64 98 - My Orders Last 24 Hours: My Active Orders 04/01/21 08:46 Sodium Chloride 0.9% [Saline Flush] 10 ml FLUSH ASDIRECTED PRN Peripheral IV Insertion Adult [OM.PC] Urgent 04/01/21 08:47 Peripheral IV Care [RC] . DIRECTED 04/01/21 09:00 Lactated Ringers [Ringers, Lactated] 1,000 ml IV ASDIRECTED - Assessment/Plan Last 24 Hours: My Active Orders 04/01/21 08:46 Sodium Chloride 0.9% [Saline Flush] 10 ml FLUSH ASDIRECTED PRN Peripheral IV Insertion Adult [OM.PC] Urgent 04/01/21 08:47 Peripheral IV Care [RC] . DIRECTED 04/01/21 09:00 Lactated Ringers [Ringers, Lactated] 1,000 ml IV ASDIRECTED Plan: Assessment Acuity = acute Site and laterality = hematochezia complicated patient with known history of adenocarcinoma lung Etiology = unknown Manifestations = anemia Location of injury = Home Lab values = hemoglobin low at 6.9 consistent with normochromic anemia, potassium low at 2.7 consistent with hypokalemia creatinine elevated 1.4 consistent with chronic renal failure stage G3 B lactic acid slightly elevated 2.3 troponin is negative urinalysis is negative Plan I felt this gentleman could benefit from admission and further evaluation for his GI bleed he has had an EGD as well as a colonoscopy last month. Unfortunately both [facility] and [facility] were full and not accepting any patients at this time. He was transfused 1 unit packed red blood cells in the emergency department as well as 20 mEq of potassium through the IV and 40 mEq p.o. I did discuss with him options which included continue to wait until a bed opens up for further evaluation of which he declined. Elected to try 1000 mg of Tranxene Christa acid with the hopes that this may slow his GI bleed down enough to buy some time and tell he can receive further evaluation either with a hospital bed or evaluation and outpatient treatment. He is going to contact his primary care for follow-up and then consultation with gastroenterology. This note was dictated using [employer] voice recognition software please call with any questions on syntax or grammar.
[2021-04-01] MEDS ORDERED: Lactated Ringers 1,000 ML IV SCH (09:00)
[2021-04-01] MEDS ORDERED: Potassium Chloride 20 MEQ Tab.ER PO ONE (09:32)
[2021-04-01] MEDS ORDERED: Potassium Chloride 20 MEQ in Premix Bag 1 BAG IV ONE (09:32)
[2021-04-01] MEDS ORDERED: Tranexamic Acid 1,000 MG in Sodium Chloride 0.9% 100 ML IV ONE (15:13)
== END 2021-04-01 16:33 | disposition home or self-care (01) ==
LOC: JP.ED 08:07
DX: K92.1 Melena (principal); I25.10 Atherosclerotic heart disease of native coronary artery without angina pectoris; E78.00 Pure hypercholesterolemia, unspecified; I10 Essential (primary) hypertension; J44.9 Chronic obstructive pulmonary disease, unspecified; M19.90 Unspecified osteoarthritis, unspecified site; G62.9 Polyneuropathy, unspecified; Z72.0 Tobacco use; Z88.8 Allergy status to other drugs, medicaments and biological substances; Z79.82 Long term (current) use of aspirin; Z79.899 Other long term (current) drug therapy; Z95.5 Presence of coronary angioplasty implant and graft
CPT/HCPCS: 36415; 36430; 80053; 81001; 83605; 83690; 84484; 85025; 86850; 86900; 86901; 86920; 86922; 96365; 96366; 96375; 99284; A9270; J3480; J7120; P9016